=== PATIENT | female | born 1940 | race Caucasian/White ===

== ENCOUNTER → 2017-02-08 | Outpatient (CLI) | payer MEDICARE ==
--- NOTE | 2017-02-10 07:20 | MM ---
Reason for exam: screening (asymptomatic). Last mammogram was performed 1 year and 2 months ago. History: Patient is postmenopausal. Took estrogen for 9 years 1 month beginning at age 60. Took progesterone for 9 years 1 month beginning at age 60. Physical Findings: A clinical breast exam by your physician is recommended on an annual basis and results should be correlated with mammographic findings. MG 3D Screening Mammo W/Cad Bilateral CC and MLO view(s) were taken. Prior study comparison: November 26, 2015, bilateral MG screening mammo w CAD. October 22, 2013, bilateral MG screening mammo w CAD. August 16, 2011, bilateral digital screening mammo w/CAD. The breast tissue is heterogeneously dense. This may lower the sensitivity of mammography. No significant changes when compared with prior studies. ASSESSMENT: Negative, BI-RAD 1 RECOMMENDATION: Routine screening mammogram of both breasts in 1 year.
== END | disposition home or self-care (01) ==
LOC: RADMAMWWP 07:38
PROVIDERS: ATTEND Internal Medicine
DX: Z12.31 Encounter for screening mammogram for malignant neoplasm of breast (principal)
CPT/HCPCS: 77063; G0202

== ENCOUNTER → 2018-11-14 | Outpatient (CLI) | payer MEDICARE ==
--- NOTE | 2018-11-15 11:28 | MM ---
Reason for exam: screening (asymptomatic). Last mammogram was performed 1 year and 9 months ago. History: Patient is postmenopausal. Took estrogen for 9 years 1 month beginning at age 60. Took progesterone for 9 years 1 month beginning at age 60. Physical Findings: A clinical breast exam by your physician is recommended on an annual basis and results should be correlated with mammographic findings. MG 3D Screening Mammo W/Cad Bilateral CC and MLO view(s) were taken. XCCL view(s) were taken of the left breast. Prior study comparison: February 08, 2017, bilateral MG 3d screening mammo w/cad. November 26, 2015, bilateral MG screening mammo w CAD. The breast tissue is heterogeneously dense. This may lower the sensitivity of mammography. There are benign appearing round vascualr calcifications bilaterally. There is no discrete abnormality. ASSESSMENT: Benign, BI-RAD 2 RECOMMENDATION: Routine screening mammogram of both breasts in 1 year.
== END | disposition home or self-care (01) ==
LOC: RADMAMWWP 11:06
PROVIDERS: ATTEND Internal Medicine
DX: Z12.31 Encounter for screening mammogram for malignant neoplasm of breast (principal)
CPT/HCPCS: 77063; 77067

== ENCOUNTER → 2022-08-24 | Outpatient (CLI) | payer MEDICARE ==
--- NOTE | 2022-08-24 15:39 | NM ---
EXAMINATION TYPE: NM bone scan whole body DATE OF EXAM: 08/24/2022 COMPARISON: NONE HISTORY: Breast cancer Delayed whole-body scanning was performed following the injection of 23.3 mCi Tc 99m MDP. Images wer e acquired 4 hours post injection. FINDINGS: There is increased uptake within multiple vertebral levels. This appears to include the regions of T3 , pedicles of T5 and right T6 pedicles of T9 and left T10 pedicle increased uptake is within the pedi cles of L1-L2 and L3. There is a focus of radiotracer within the acetabulum and more diffusely in the right acetabulum. There are scattered areas of uptake within the ribs suspicious for metastatic dise ase. Additional scattered foci within the calvarium. Findings are suspicious for metastatic disease. Uptake within the first carpometacarpal regions bilaterally are more likely degenerative in nature. IMPRESSION: 1. Findings suspicious for multiple metastatic lesions through the axial skeleton including thoracic and lumbar spine. 2. Multiple scattered metastatic lesions within the bilateral ribs, the calvarium, compatible with me tastatic disease. 3. Scattered areas of uptake within the pelvis and around the acetabulum suggestive for metastatic di sease.
--- NOTE | 2022-08-24 22:02 | CT ---
EXAMINATION TYPE: CT ChestAbdPelvis w con DATE OF EXAM: 08/24/2022 INDICATION: FOLLOW UP BREAST CA COMPARISON: None CT DLP: 534 mGycm CONTRAST: Performed with Oral Contrast and with IV Contrast, patient injected with 100 mL of Isovue 300. TECHNIQUE: Axial images at 5 mm thick sections. Reconstructed images in the coronal plane. Delayed images through the kidneys. FINDINGS: CT CHEST: Portion of the thyroid visualized is normal. There are scattered bilateral axillary lymph nodes. The largest on the left measures 0.8 cm. Largest on the right measures 0.9 cm. No suspicious enlarged med iastinal or hilar lymph nodes are evident. No suspicious lung nodules or focal infiltrates are present. The ascending aorta diameter at the level of the main pulmonary artery is 3.3 cm. The main pulmonary artery diameter at the bifurcation is 2.4 cm. Small hiatal hernia is present. CT ABDOMEN: Liver: Normal Spleen: Normal Pancreas: Normal Adrenal glands: The adrenal glands are normal. Gallbladder: Surgically absent. Kidneys: No masses are evident. There is bilateral renal hydronephrosis. There is some prominent righ t ureter. This extends to the pelvic inlet. No obstructing etiology is identified. No cysts are prese nt. Delayed images were obtained through the kidneys. Aorta: Vascular calcification is within the aorta. Inferior vena cava: Normal. CT PELVIS: Loops of bowel within the abdomen and pelvis are normal. A few scattered diverticuli are present. There are loops of bowel which are incompletely distended or lack oral contrast limiting their evalua tion. Appendix: Normal as visualized. Urinary bladder: Normal. Genitourinary structures: Uterus is normal. Adnexa are unremarkable. Osseous structures: Sclerotic areas are present in L1 T10 posteriorly T7. Sclerosis may be in T1. Fin dings correlate with bone scan. IMPRESSIONS: 1. Diverticulosis without acute diverticulitis. 2. Bilateral mild hydronephrosis of uncertain etiology. 3. Prominent axillary lymphadenopathy bilaterally which are not enlarged by CT criteria. 4. Suspicious changes for metastasis to the axial spine. See nuclear medicine scan report same date.
== END | disposition home or self-care (01) ==
LOC: RADNMMAIN 08:58
PROVIDERS: ATTEND Internal Medicine Hematology & Oncology
DX: Z03.89 Encounter for observation for other suspected diseases and conditions ruled out (principal); C79.51 Secondary malignant neoplasm of bone; C50.112 Malignant neoplasm of central portion of left female breast; N13.30 Unspecified hydronephrosis; K57.90 Diverticulosis of intestine, part unspecified, without perforation or abscess without bleeding; R59.0 Localized enlarged lymph nodes
CPT/HCPCS: 82565; 84520; 71260; 74177; 36415; 78306; A9503; Q9967

== ENCOUNTER 2022-09-22 11:32 | Emergency (ER) | payer MEDICARE ==
[2022-09-22 11:59] VITALS: PULSE 76; RESP 16; TEMP 97.8
[2022-09-22 13:46] LABS: Anisocytosis Slight; Basophils # (A) 0.1 k/uL (0-0.2); Basophils % (A) 3 %; Eosinophils # (A) 0.1 k/uL (0-0.7); Eosinophils % (A) 4 %; HCT 35.6 % (34.0-46.0); Lymphocytes # (A) 0.8 k/uL (1.0-4.8); Lymphocytes % (A) 31 %; MCH 30.8 pg (25.0-35.0); MCHC 33.8 g/dL (31.0-37.0); MCV 91.2 fL (80.0-100.0); Mean Platelet Volume 7.2; Monocytes # (A) 0.1 k/uL (0-1.0); Monocytes % (A) 4 %; Neutrophils # (A) 1.4 k/uL (1.3-7.7); Neutrophils % (A) 54 %; Platelet Count 445 k/uL (150-450); RDW 16.8 % (11.5-15.5); WBC 2.5 k/uL (3.8-10.6)
--- NOTE | 2022-09-22 14:00 | ED ---
General Adult HPI - General Chief complaint: Headache Stated complaint: head pain, vision issues Time Seen by Provider: 09/22/22 12:03 Source: patient, family Mode of arrival: ambulatory Limitations: physical limitation - History of Present Illness Initial comments: Dictation was produced using [employer] dictation software. please excuse any grammatical, word or spelling errors. Chief Complaint: 81-year-old female sent in to the emergency department by oncologist for vision changes and headache History of Present Illness: Exacerbation is an 81-year-old female. History of present illness obtained from daughter at the bedside and exacerbation. Patient was instructed by . had come to the emergency department to be evaluated. O jevon the last 2 weeks patient has been having intermittent episodes of left occipital headaches with left vision changes. She has history of cataract surgery in the left eye. She was recently in [place] were tentative diagnosis is made that patient has temporal arteritis. She did not end up getting temporal artery biopsy. She did receive steroids at this time. Patient denies any symptoms at the bedside. For the last 2 weeks she's been having on and off sputtering symptoms. She saw an bicycle messenger recently and was told that patient had normal ocular exam. Patient has history of breast cancer with metastatic spread. The ROS documented in this emergency department record has been reviewed and confirmed by me. Those systems with pertinent positive or negative responses have been documented in the HPI. All other systems are other negative and/or noncontributory. - Related Data Home Medications Medication Instructions Recorded Confirmed Letrozole 2.5 mg PO PC-LUNCH 09/22/22 09/22/22 Levothyroxine Sodium [Synthroid] 50 mcg PO SEGUNDO 09/22/22 09/22/22 Levothyroxine Sodium [Synthroid] 100 mcg PO MOTUWETHFRSA 09/22/22 09/22/22 Palbociclib [Ibrance] 125 mg PO DIRECTED 09/22/22 09/22/22 Previous Rx's Medication Instructions Recorded predniSONE [Deltasone] 60 mg PO DAILY 14 Days #42 tab 09/22/22 Allergies Allergy/AdvReac Type Severity Reaction Status Date / Time No Known Allergies Allergy Verified 09/22/22 15:46 Review of Systems ROS Statement: Those systems with pertinent positive or pertinent negative responses have been documented in the HPI. ROS Other: All systems not noted in ROS Statement are negative. Past Medical History Past Medical History: Cancer, Thyroid Disorder Additional Past Medical History / Comment(s): hard of hearing, bilat hearing aid, lt breast History of Any Multi-Drug Resistant Organisms: None Reported Past Surgical History: Cholecystectomy Past Anesthesia/Blood Transfusion Reactions: No Reported Reaction Past Psychological History: No Psychological Hx Reported Smoking Status: Former smoker Past Alcohol Use History: None Reported, Rare Past Drug Use History: None Reported General Exam - General Exam Comments Initial Comments: PHYSICAL EXAM: General Impression: Alert and oriented x3, not in acute distress HEENT: Normocephalic atraumatic, extra-ocular movements intact, pupils equal and reactive to light bilaterally, mucous membranes moist. Cardiovascular: Heart regular rate and rhythm Chest: Able to complete full sentences, no retractions, no tachypnea Abdomen: abdomen soft, non-tender, non-distended, no organomegaly Musculoskeletal: Pulses present and equal in all extremities, no peripheral edema Motor: no focal deficits noted Neurological: CN II-XII grossly intact, no focal motor or sensory deficits noted Skin: Intact with no visualized rashes Psych: Normal affect and mood Limitations: physical limitation Course Vital Signs 09/22/22 09/22/22 11:55 15:41 Temperature 97.8 F Pulse Rate 76 76 Respiratory 16 16 Rate Blood Pressure 193/76 166/70 O2 Sat by Pulse 98 166 H Oximetry - Reevaluation(s) Reevaluation #1: 09/22/22 16:38 Patient absolutely refusing admission. Case discussed with Dr. Merida request the patient be given prescription for 60 mg prednisone daily and patient be provided with referral to vascular surgeon for outpatient temporal artery biop sy. Patient is agreeable. She is told to follow-up with her primary doctor for outpatient management. Patient understands that her condition can acutely worsened resulting in permanent vision loss EKG Findings - EKG Comments: EKG Findings:: My EKG interpretation: Ventricular rate 60, sinus rhythm,. 133, QRS 82, QTC 4:15. No MA prolongation, no QTC prolongation, no ST or T-wave changes noted. No old EKG for comparison Overall, this EKG is unremarkable Medical Decision Making - Medical Decision Making Was pt. sent in by a medical professional or institution (, PA, PLANTING SUPERVISOR, urgent care, hospital, or half-way...) When possible be specific @ -Sent in by oncologist Did you speak to anyone other than the patient for history (EMS, parent, family, police, friend...)? What history was obtained from this source @ -Daughter at the bedside provides majority of history of present illness. See above for further detail Did you review nursing and triage notes (agree or disagree)? Why? @ -I reviewed and agree with nursing and triage notes Were old charts reviewed (outside hosp., previous admission, EMS record, old EKG, old radiological studies, urgent care reports/EKG's, half-way records)? Report findings @ -No old charts were reviewed Differential Diagnosis (chest pain, altered mental status, abdominal pain women, abdominal pain men, vaginal bleeding, musculoskeletal, weakness, fever, dyspnea, syncope, headache, dizziness, GI bleed, back pain, seizure, CVA, palpatations, mental health)? @ -Differential Headache: Migraine, tension, cluster, carbon monoxide, central venous thrombosis, pension karma temporal arteritis, acute closure glaucoma, intercranial hemorrhage, mastoiditis, sinusitis, head injury, this is not meant to be an all-inclusive list. EKG interpreted by me (3pts min.). @ -See above X-rays interpreted by me (1pt min.). @ -None done CT interpreted by me (1pt min.). @ -Nonacute U/S interpreted by me (1pt. min.). @ -None done What testing was considered but not performed or refused? (CT, X-rays, U/S, labs)? Why? @ -None What meds were considered but not given or refused? Why? @ -None Did you discuss the management of the patient with other professionals (professionals i.e. , PA, PLANTING SUPERVISOR, lab, RT, psych nurse, social research assistant, car dumper operator helper, teacher, railroad police officer, catalytic case operator)? Give summary @ -No Was smoking cessation discussed for >3mins.? @ -No Was critical care preformed (if so, how long)? @ -No Were there social determinants of health that impacted care today? How? (Homelessness, low income, unemployed, alcoholism, drug addiction, transportation, low edu. Level, literacy, decrease access to med. care, nursing home, rehab)? @ -No Was there de-escalation of care discussed even if they declined (Discuss DNR or withdrawal of care, Hospice)? DNR status @ -No What co-morbidities impacted this encounter? (DM, HTN, Smoking, COPD, CAD, Cancer, CVA, ARF, Chemo, Hep., AIDS, mental health diagnosis, sleep apnea, morbid obesity)? @ -None Was patient admitted / discharged? Hospital course, mention meds given and route, prescriptions, significant lab abnormalities, going to OR and other per tinent info. @ -81-year-old female sent in by oncologist for headache and vision changes. She is asymptomatic at bedside. Laboratory evaluation shows leukopenia 2.5. ESR was elevated at 62. CRP is within acceptable limits. Patient reevaluated bedside on be within stable medical condition. Clinical presentation is suspicious for temporal arteritis. Patient absolutely refusing admission. Case discussed with neurology for outpatient plan. Given referral to vascular surg michael for recommended temporal artery biopsy. Undiagnosed new problem with uncertain prognosis? @ -No Drug Therapy requiring intensive monitoring for toxicity (Heparin, Nitro, Insulin, Cardizem)? @ -No Were any procedures done? @ -No Diagnosis/symptom? Acute, or Chronic, or Acute on Chronic? Uncomplicated (without systemic symptoms) or Complicated (systemic symptoms)? @ -1. acute headache with vision changes Side effects of treatment? @ -No Exacerbation, Progression, or Severe Exacerbation? @ -No Poses a threat to life or bodily function? How? (Chest pain, [place], [place], pneumonia, PE, COPD, DKA, ARF, appy, cholecystitis, CVA, Diverticulitis, Homicidal, Suicidal, threat to staff... and all critical care pts) @ -yes - Lab Data Result diagrams: 09/22/22 13:37 09/22/22 13:37 Lab Results 09/22/22 09/22/22 Range/Units 13:37 13:37 WBC 2.5 L (3.8-10.6) k/uL RBC 3.90 (3.80-5.40) m/uL Hgb 12.0 (11.4-16.0) gm/dL Hct 35.6 (34.0-46.0) % MCV 91.2 (80.0-100.0) fL MCH 30.8 (25.0-35.0) pg MCHC 33.8 (31.0-37.0) g/dL RDW 16.8 H (11.5-15.5) % Plt Count 445 (150-450) k/uL MPV 7.2 Neutrophils % 54 % Lymphocytes % 31 % Monocytes % 4 % Eosinophils % 4 % Basophils % 3 % Neutrophils # 1.4 (1.3-7.7) k/uL Lymphocytes # 0.8 L (1.0-4.8) k/uL Monocytes # 0.1 (0-1.0) k/uL Eosinophils # 0.1 (0-0.7) k/uL Basophils # 0.1 (0-0.2) k/uL Anisocytosis Slight ESR 62 H (0-20) mm/hr Sodium 141 (137-145) mmol/L Potassium 4.9 (3.5-5.1) mmol/L Chloride 106 (98-107) mmol/L Carbon Dioxide 25 (22-30) mmol/L Anion Gap 10 mmol/L BUN 19 H (7-17) mg/dL Creatinine 0.61 (0.52-1.04) mg/dL Est GFR (CKD-EPI)AfAm >90 (>60 ml/min/1.73 sqM) Est GFR (CKD-EPI)NonAf 85 (>60 ml/min/1.73 sqM) Glucose 104 H (74-99) mg/dL Calcium 8.6 (8.4-10.2) mg/dL Total Bilirubin 0.4 (0.2-1.3) mg/dL AST 28 (14-36) U/L ALT 17 (4-34) U/L Alkaline Phosphatase 94 (38-126) U/L C-Reactive Protein 1.5 H (<1.0) mg/dL Total Protein 7.0 (6.3-8.2) g/dL Albumin 3.9 (3.5-5.0) g/dL Disposition Clinical Impression: Headache Disposition: HOME SELF-CARE Condition: Fair Instructions (If sedation given, give patient instructions): Temporal Arteritis (ED) Prescriptions: predniSONE [Deltasone] 60 mg PO DAILY 14 Days #42 tab Is patient prescribed a controlled substance at d/c from ED?: No Referrals: Kat Castillo MD [Primary Care Provider] - 1-2 days Onelia Hargrove DO [STAFF PHYSICIAN] - 1-2 days Time of Disposition: 16:41
[2022-09-22 14:06] LABS: ALT 17 U/L (4-34); AST 28 U/L (14-36); African American GFR (CKD) >90 (>60 ml/min/1.73 sqM); Albumin 3.9 g/dL (3.5-5.0); Alkaline Phosphatase 94 U/L (38-126); Anion Gap 10 mmol/L; Blood Urea Nitrogen 19 mg/dL (7-17); C Reactive Protein 1.5 mg/dL (<1.0); Calcium 8.6 mg/dL (8.4-10.2); Carbon Dioxide 25 mmol/L (22-30); Chloride 106 mmol/L (98-107); Glucose 104 mg/dL (74-99); Non-African American GFR(CKD) 85 (>60 ml/min/1.73 sqM); Potassium 4.9 mmol/L (3.5-5.1); Sodium 141 mmol/L (137-145); Total Bilirubin 0.4 mg/dL (0.2-1.3)
--- NOTE | 2022-09-22 14:08 | CT ---
EXAMINATION TYPE: CT brain wo con CT DLP: 1100 mGycm, Automated exposure control for dose reduction was used. DATE OF EXAM: 09/22/2022 2:00 PM COMPARISON: None. CLINICAL INDICATION:Female, 81 years old with history of headache, Pain in back of head-left side TECHNIQUE: Brain: Multiple axial CT images of the brain were obtained without IV contrast. Coronal and sagittal reformats reviewed. FINDINGS: Brain: Extra-axial spaces: No abnormal extra-axial fluid collections. Ventricular system: Within normal limits Cerebral parenchyma: Cerebral atrophy. No acute intraparenchymal hemorrhage or mass effect. The santos -white junction is well differentiated. Scattered hypoattenuating areas are seen within the white mat ter. Cerebellum: Unremarkable. Mass effect: No evidence of midline shift. Intracranial vasculature: Atherosclerotic calcifications of the intracranial vessels. Soft tissues: Normal. Calvarium/osseous structures: No depressed skull fracture. Paranasal sinuses and mastoid air cells: Clear, hypoplasia of the right frontal sinus. Visualized orbits: Bilateral aphakia IMPRESSION: 1. No acute intracranial process. 2. Nonspecific white matter changes, likely secondary to chronic small vessel ischemic disease.
[2022-09-22 15:28] LABS: Erythrocyte Sedimentation Rate 62 mm/hr (0-20)
[2022-09-22 15:41] VITALS: BP 166/70
[2022-09-22] MEDS ORDERED: LIDOCAINE 5% PATCH TOPICAL STA (16:07)
--- NOTE | 2022-09-22 17:21 | P.PN ---
Progress Note - Text Progress Note Date: 09/22/22 Dr Douglas spoke to me earlier about this patient, who has elevated ESR of 62, and recent onset of occipital headache, suspected temporal arteritis for the dose of prednisone. Patient did not want to stay in the hospital. I did inform him of standard dose of prednisone 60 mg daily for temporal arteritis. Patient was sent home from ER. I wanted to see the patient in the ER, but apparently she was already discharged. I called patient's daughter on the phone, and spoke to her. She tells me that patient has been diagnosed with metastatic breast cancer, currently on chemotherapy. About 4 years ago while she was in [place], she had suspected temporal arteritis. She was started on prednisone. When she moved to [place], patient saw a neurologist as well as mine laborer locally, and both of those specialists did not believe that it was temporal arteritis. She was referred to a female vascular surgeon, (?perhaps Dr. Hargrove), who did not believe that she has temporal arteritis either. This procedure was never performed. Patient was not on any steroids all these years and was otherwise fine all these years. She had undergone cataract surgery a year ago and since then she has been having intermittent blurred vision off and on. She was seen by Dr. Hwang about a week ago, and her eyes were fine. Based upon above history, I do not believe that patient has temporal arteritis. I suggested patient's daughter not to give her high-dose steroids. Instructed her to return to ER for further evaluation, as she may need an MRI of the brain and cervical spine, perhaps also neuro vascular imaging and further testing for evaluation of new onset headache. However patient's daughter wanted patient to be seen by the primary physician and decide. They also have an appointment with the oncologist in a week. Patient's daughter understands the risks of not bringing her to the hospital, and there could be something serious undergoing at this time. She was instructed to bring her mother back to the hospital if any concerns.
== END 2022-09-22 16:51 | disposition home or self-care (01) ==
LOC: EC 11:32
DX: R51.9 Headache, unspecified (principal); E07.9 Disorder of thyroid, unspecified; Z79.890 Hormone replacement therapy; Z87.891 Personal history of nicotine dependence; Z90.49 Acquired absence of other specified parts of digestive tract
CPT/HCPCS: 36415; 70450; 80053; 85025; 85652; 86140; 93005; 99284

== ENCOUNTER 2022-12-23 17:21 | Inpatient (IN) | payer MEDICARE ==
[2022-12-23] MEDS ORDERED: SODIUM CHLORIDE 0.9% 1,000 ML IV STA (17:53)
[2022-12-23] MEDS ORDERED: SODIUM CHLORIDE 0.9% 500 ML 500 ML IV STA (17:53)
[2022-12-23 18:28] LABS: HCT 35.5 % (34.0-46.0); HGB 12.5 gm/dL (11.4-16.0); MCH 36.2 pg (25.0-35.0); MCHC 35.1 g/dL (31.0-37.0); Macrocytosis Slight; Mean Platelet Volume 7.8; Platelet Count 231 k/uL (150-450); RBC 3.45 m/uL (3.80-5.40)
--- NOTE | 2022-12-23 18:38 | CT ---
EXAMINATION TYPE: CT brain wo con DATE OF EXAM: 12/23/2022 COMPARISON: 09/22/2022 HISTORY: Confusion, LT side facial droop. CT DLP: 1118.[address] of the brain was performed. The ventricles, basal cisterns and sulci overlying the cerebral convexities demonstrate mild enlargem ent. New areas of acute edema involving the right caudate nucleus and putamen compatible with acute i schemic insult. No evidence for cortical insult at this time. There is no evidence for intracranial hemorrhage. There is decreased attenuation about the periventricular white matter and deep white matter of both c erebral hemispheres, compatible with chronic small vessel ischemia. Differential diagnosis does inclu de demyelination. No mass effects are seen.No midline shift. Osseous calvarium is intact. If symptoms persist consider MRI. IMPRESSION: 1. Acute areas of ischemic insult involving the right caudate nucleus and putamen. No evidence for he morrhagic transformation. No midline shift.
--- NOTE | 2022-12-23 18:43 | ED ---
Neuro HPI - General Chief Complaint: Neuro Symptoms/Deficit Stated Complaint: confusion, mouth drooping per dtr Time Seen by Provider: 12/23/22 17:52 Source: patient, RN notes reviewed, old records reviewed, Caregiver Mode of arrival: ambulatory Limitations: no limitations - History of Present Illness Is the patient presenting with stroke symptoms?: Yes -: hour(s) (Family did not notice symptoms to around noon), unknown (Likely unknown) Initial Comments: This is an 82-year-old female DF for evaluation not acting appropriately per family. Family is at bedside providing history, family noticed patient to be slurring speech earlier this afternoon and later in the day when I saw the patient they did notice facial droop. Patient presents with no complaints herself. She has no headache chest pain shortness of breath abdominal pain able to ambulate without difficulty no history of prior CVA patient is also having periods of confusion throughout the day. Patient does have history of breast cancer no prior history of CVA. Unsure of exact onset of symptoms although patient around 10 and was seen by the daughter on face time and thought to be acting appropriate. Patient herself remained without complaint, patient's daughter again talked the patient around 1 PM and noticed slurred speech, saw the patient in personal 3 PM notice facial droop and patient presents to the ER today Location: speech, left face, dysarthria Place: home Severity: mild Quality: weak Improves With: none Worsens With: none Context: other (Unknown) Associated Symptoms: confusion, weakness Treatments Prior to Arrival: none - Related Data Home Medications: Home Medications Medication Instructions Recorded Confirmed Letrozole 2.5 mg PO DAILY 09/22/22 12/23/22 Levothyroxine Sodium [Synthroid] 100 mcg PO DAILY 09/22/22 12/23/22 Palbociclib [Ibrance] 125 mg PO DIRECTED 09/22/22 12/23/22 ALPRAZolam [Xanax] 0.25 mg PO DAILY PRN 12/23/22 12/23/22 Ondansetron [Zofran] 4 mg PO TID PRN 12/23/22 12/23/22 Allergies/Adverse Reactions: Allergies Allergy/AdvReac Type Severity Reaction Status Date / Time No Known Allergies Allergy Verified 12/23/22 20:02 Review of Systems ROS Statement: Those systems with pertinent positive or pertinent negative responses have been documented in the HPI. ROS Other: All systems not noted in ROS Statement are negative. General Exam - General Exam Comments Initial Comments: NIH of 3 Limitations: no limitations General appearance: alert, in no apparent distress Head exam: Present: atraumatic, normocephalic, normal inspection Eye exam: Present: normal appearance, PERRL, EOMI. Absent: scleral icterus, conjunctival injection, periorbital swelling ENT exam: Present: normal exam, mucous membranes moist Neck exam: Present: normal inspection. Absent: tenderness, meningismus, lymphadenopathy Respiratory exam: Present: normal lung sounds bilaterally. Absent: respiratory distress, wheezes, rales, rhonchi, stridor Cardiovascular Exam: Present: regular rate, normal rhythm, normal heart sounds. Absent: systolic murmur, diastolic murmur, rubs, gallop, clicks GI/Abdominal exam: Present: soft, normal bowel sounds. Absent: distended, tenderness, guarding, rebound, rigid Extremities exam: Present: normal inspection, full ROM, normal capillary refill. Absent: tenderness, pedal edema, joint swelling, calf tenderness Back exam: Present: normal inspection Neurological exam: Present: alert, oriented X3, CN II-XII intact Psychiatric exam: Present: normal affect, normal mood Skin exam: Present: warm, dry, intact, normal color. Absent: rash Stroke MDM - Lab Data Result diagrams: 12/26/22 14:02 12/26/22 14:02 Lab Results 12/23/22 12/23/22 12/23/22 Range/Units 17:53 17:53 17:53 WBC 3.0 L (3.8-10.6) k/uL RBC 3.45 L (3.80-5.40) m/uL Hgb 12.5 (11.4-16.0) gm/dL Hct 35.5 (34.0-46.0) % MCV 103.0 H (80.0-100.0) fL MCH 36.2 H (25.0-35.0) pg MCHC 35.1 (31.0-37.0) g/dL RDW 15.0 (11.5-15.5) % Plt Count 231 (150-450) k/uL MPV 7.8 Neutrophils % Not Reportable Neutrophils % (Manual) 42 % Lymphocytes % Not Reportable Lymphocytes % (Manual) 51 % Monocytes % Not Reportable Monocytes % (Manual) 6 % Eosinophils % Not Reportable Eosinophils % (Manual) 1 % Basophils % Not Reportable Neutrophils # Not Reportable Neutrophils # (Manual) 1.26 L (1.3-7.7) k/uL Lymphocytes # Not Reportable Lymphocytes # (Manual) 1.53 (1.0-4.8) k/uL Monocytes # Not Reportable Monocytes # (Manual) 0.18 (0-1.0) k/uL Eosinophils # Not Reportable Eosinophils # (Manual) 0.03 (0-0.7) k/uL Basophils # Not Reportable Nucleated RBCs 0 (0-0) /100 WBC Manual Slide Review Performed Macrocytosis Slight PT 9.9 (9.0-12.0) sec INR 0.9 (<1.2) APTT 23.0 (22.0-30.0) sec Sodium 139 (137-145) mmol/L Potassium 4.5 (3.5-5.1) mmol/L Chloride 105 (98-107) mmol/L Carbon Dioxide 27 (22-30) mmol/L Anion Gap 7 mmol/L BUN 21 H (7-17) mg/dL Creatinine 0.80 (0.52-1.04) mg/dL Est GFR (CKD-EPI)AfAm 80 (>60 ml/min/1.73 sqM) Est GFR (CKD-EPI)NonAf 69 (>60 ml/min/1.73 sqM) Glucose 99 (74-99) mg/dL Plasma Lactic Acid Jhonny (0.7-2.0) mmol/L Calcium 9.5 (8.4-10.2) mg/dL Phosphorus 4.9 H (2.5-4.5) mg/dL Magnesium 2.1 (1.6-2.3) mg/dL Total Bilirubin 0.5 (0.2-1.3) mg/dL AST 29 (14-36) U/L ALT 19 (4-34) U/L Alkaline Phosphatase 79 (38-126) U/L Troponin I (0.000-0.034) ng/mL Total Protein 7.4 (6.3-8.2) g/dL Albumin 4.1 (3.5-5.0) g/dL Triglycerides (0.00-149.00) mg/dL Cholesterol (0.00-200.00) mg/dL LDL Cholesterol, Calc (0.0-131.0) mg/dL VLDL Cholesterol, Calc (5.00-40.00) mg/dL HDL Cholesterol (40.00-60.00) mg/dL Cholesterol/HDL Ratio Ratio Urine Color Urine Appearance (Clear) Urine pH (5.0-8.0) Ur Specific [place] (1.001-1.035) Urine Protein (Negative) Urine Glucose (UA) (Negative) Urine Ketones (Negative) Urine Blood (Negative) Urine Nitrite (Negative) Urine Bilirubin (Negative) Urine Urobilinogen (<2.0) mg/dL Ur Leukocyte Esterase (Negative) 12/23/22 12/23/22 12/23/22 Range/Units 17:53 17:53 17:53 WBC (3.8-10.6) k/uL RBC (3.80-5.40) m/uL Hgb (11.4-16.0) gm/dL Hct (34.0-46.0) % MCV (80.0-100.0) fL MCH (25.0-35.0) pg MCHC (31.0-37.0) g/dL RDW (11.5-15.5) % Plt Count (150-450) k/uL MPV Neutrophils % Neutrophils % (Manual) % Lymphocytes % Lymphocytes % (Manual) % Monocytes % Monocytes % (Manual) % Eosinophils % Eosinophils % (Manual) % Basophils % Neutrophils # Neutrophils # (Manual) (1.3-7.7) k/uL Lymphocytes # Lymphocytes # (Manual) (1.0-4.8) k/uL Monocytes # Monocytes # (Manual) (0-1.0) k/uL Eosinophils # Eosinophils # (Manual) (0-0.7) k/uL Basophils # Nucleated RBCs (0-0) /100 WBC Manual Slide Review Macrocytosis PT (9.0-12.0) sec INR (<1.2) APTT (22.0-30.0) sec Sodium (137-145) mmol/L Potassium (3.5-5.1) mmol/L Chloride (98-107) mmol/L Carbon Dioxide (22-30) mmol/L Anion Gap mmol/L BUN (7-17) mg/dL Creatinine (0.52-1.04) mg/dL Est GFR (CKD-EPI)AfAm (>60 ml/min/1.73 sqM) Est GFR (CKD-EPI)NonAf (>60 ml/min/1.73 sqM) Glucose (74-99) mg/dL Plasma Lactic Acid Jhonny 1.4 (0.7-2.0) mmol/L Calcium (8.4-10.2) mg/dL Phosphorus (2.5-4.5) mg/dL Magnesium (1.6-2.3) mg/dL Total Bilirubin (0.2-1.3) mg/dL AST (14-36) U/L ALT (4-34) U/L Alkaline Phosphatase (38-126) U/L Troponin I <0.012 (0.000-0.034) ng/mL Total Protein (6.3-8.2) g/dL Albumin (3.5-5.0) g/dL Triglycerides 185.00 H (0.00-149.00) mg/dL Cholesterol 192.00 (0.00-200.00) mg/dL LDL Cholesterol, Calc 116.6 (0.0-131.0) mg/dL VLDL Cholesterol, Calc 37.00 (5.00-40.00) mg/dL HDL Cholesterol 38.40 L (40.00-60.00) mg/dL Cholesterol/HDL Ratio 5.00 Ratio Urine Color Urine Appearance (Clear) Urine pH (5.0-8.0) Ur Specific [place] (1.001-1.035) Urine Protein (Negative) Urine Glucose (UA) (Negative) Urine Ketones (Negative) Urine Blood (Negative) Urine Nitrite (Negative) Urine Bilirubin (Negative) Urine Urobilinogen (<2.0) mg/dL Ur Leukocyte Esterase (Negative) 12/23/22 Range/Units 18:54 WBC (3.8-10.6) k/uL RBC (3.80-5.40) m/uL Hgb (11.4-16.0) gm/dL Hct (34.0-46.0) % MCV (80.0-100.0) fL MCH (25.0-35.0) pg MCHC (31.0-37.0) g/dL RDW (11.5-15.5) % Plt Count (150-450) k/uL MPV Neutrophils % Neutrophils % (Manual) % Lymphocytes % Lymphocytes % (Manual) % Monocytes % Monocytes % (Manual) % Eosinophils % Eosinophils % (Manual) % Basophils % Neutrophils # Neutrophils # (Manual) (1.3-7.7) k/uL Lymphocytes # Lymphocytes # (Manual) (1.0-4.8) k/uL Monocytes # Monocytes # (Manual) (0-1.0) k/uL Eosinophils # Eosinophils # (Manual) (0-0.7) k/uL Basophils # Nucleated RBCs (0-0) /100 WBC Manual Slide Review Macrocytosis PT (9.0-12.0) sec INR (<1.2) APTT (22.0-30.0) sec Sodium (137-145) mmol/L Potassium (3.5-5.1) mmol/L Chloride (98-107) mmol/L Carbon Dioxide (22-30) mmol/L Anion Gap mmol/L BUN (7-17) mg/dL Creatinine (0.52-1.04) mg/dL Est GFR (CKD-EPI)AfAm (>60 ml/min/1.73 sqM) Est GFR (CKD-EPI)NonAf (>60 ml/min/1.73 sqM) Glucose (74-99) mg/dL Plasma Lactic Acid Jhonny (0.7-2.0) mmol/L Calcium (8.4-10.2) mg/dL Phosphorus (2.5-4.5) mg/dL Magnesium (1.6-2.3) mg/dL Total Bilirubin (0.2-1.3) mg/dL AST (14-36) U/L ALT (4-34) U/L Alkaline Phosphatase (38-126) U/L Troponin I (0.000-0.034) ng/mL Total Protein (6.3-8.2) g/dL Albumin (3.5-5.0) g/dL Triglycerides (0.00-149.00) mg/dL Cholesterol (0.00-200.00) mg/dL LDL Cholesterol, Calc (0.0-131.0) mg/dL VLDL Cholesterol, Calc (5.00-40.00) mg/dL HDL Cholesterol (40.00-60.00) mg/dL Cholesterol/HDL Ratio Ratio Urine Color Colorless Urine Appearance Clear (Clear) Urine pH 6.5 (5.0-8.0) Ur Specific [place] 1.003 (1.001-1.035) Urine Protein Negative (Negative) Urine Glucose (UA) Negative (Negative) Urine Ketones Negative (Negative) Urine Blood Negative (Negative) Urine Nitrite Negative (Negative) Urine Bilirubin Negative (Negative) Urine Urobilinogen <2.0 (<2.0) mg/dL Ur Leukocyte Esterase Negative (Negative) - NIH Stroke Scale 1a. Level of Consciousness: (0) alert 1b. LOC Questions: (0) answers correctly 1c. LOC Commands: (0) performs tasks correctly 2. Best Gaze: (0) normal 3. Visual: (0) no visual loss 4. Facial Palsy: (2) partial paralysis 5a. Motor Arm Left: (0) no drift 5b. Motor Arm Right: (0) no drift 6a. Motor Leg Left: (0) no drift 6b. Motor Leg Right: (0) no drift 7. Limb Ataxia: (0) absent 8. Sensory: (0) normal 9. Best Language: (1) mild/moderate aphasia 10. Dysarthria: (0) normal 11. Extinction/Inattention: (0) no abnormality - Thrombolytic Inclusion/Exclusion Thrombolytic Exclusion Criteria: Symptom Onset > 4.5 Hours - Medical Decision Making 82 female to the ER with acute CVA, patient presents today for evaluation of slurred speech, left-sided facial droop. Patient is outside the window for TPA secondary to unknown onset of symptoms likely wake up stroke, patient is found to be confused by find him Route phone call and then noted facial droop impression both early this afternoon. Computed tomography scan is positive for CVA also and further proving early onset of symptoms much prior to arrival - Radiology Data Radiology results: report reviewed (CT brain CT [place] head neck is positive for CVA), image reviewed - EKG Data -: EKG Interpreted by Me Past Medical History Past Medical History: Cancer, Thyroid Disorder Additional Past Medical History / Comment(s): hard of hearing, bilat hearing aid, lt breast History of Any Multi-Drug Resistant Organisms: None Reported Past Surgical History: Cholecystectomy Past Anesthesia/Blood Transfusion Reactions: No Reported Reaction Past Psychological History: No Psychological Hx Reported Smoking Status: Former smoker Past Alcohol Use History: None Reported, Rare Past Drug Use History: None Reported - Past Family History Father Family Medical History: Myocardial Infarction (MT) Mother Family Medical History: CVA/TIA Course Vital Signs 12/23/22 12/23/22 12/23/22 17:41 17:53 18:00 Temperature 98.1 F Pulse Rate 63 72 74 Respiratory 20 16 17 Rate Blood Pressure 188/88 199/78 199/78 O2 Sat by Pulse 98 98 97 Oximetry 12/23/22 12/23/22 12/23/22 18:40 19:30 20:30 Temperature Pulse Rate 66 66 72 Respiratory 19 15 Rate Blood Pressure 171/72 184/70 168/71 O2 Sat by Pulse 97 98 99 Oximetry 12/23/22 12/23/22 12/23/22 21:00 21:30 22:00 Temperature Pulse Rate 68 63 67 Respiratory 16 16 18 Rate Blood Pressure 180/90 176/68 156/70 O2 Sat by Pulse 97 99 97 Oximetry 12/24/22 12/24/22 12/24/22 00:50 01:00 02:00 Temperature Pulse Rate 66 69 Respiratory 19 19 Rate Blood Pressure 139/76 139/76 148/66 O2 Sat by Pulse 94 L 95 96 Oximetry 12/24/22 12/24/22 12/24/22 03:00 04:00 05:00 Temperature Pulse Rate 61 61 53 L Respiratory 13 16 17 Rate Blood Pressure 151/50 120/99 147/58 O2 Sat by Pulse 97 96 94 L Oximetry 12/24/22 12/24/22 12/24/22 06:00 06:10 06:20 Temperature Pulse Rate 52 L 49 L 50 L Respiratory 18 17 17 Rate Blood Pressure 119/50 121/58 121/58 O2 Sat by Pulse 96 98 97 Oximetry 12/24/22 12/24/22 12/24/22 06:30 06:40 06:50 Temperature Pulse Rate 53 L 51 L 54 L Respiratory 17 16 18 Rate Blood Pressure 121/58 121/58 121/58 O2 Sat by Pulse 97 96 95 Oximetry 12/24/22 12/24/22 12/24/22 07:00 07:25 09:10 Temperature 97.9 F 97.8 F Pulse Rate 54 L 71 64 Respiratory 18 16 17 Rate Blood Pressure 121/58 115/53 173/73 O2 Sat by Pulse 95 96 100 Oximetry 12/24/22 12/24/22 12/24/22 11:45 15:39 18:10 Temperature 97.6 F 97.8 F 97.6 F Pulse Rate 64 66 65 Respiratory 16 16 16 Rate Blood Pressure 194/71 148/49 158/60 O2 Sat by Pulse 99 98 97 Oximetry - Reevaluation(s) Reevaluation #1: 12/23/22 18:30 Medical records reviewed Code still paged on patient presentation and evaluation Patient was not cold alteplase due to timing patient's daughter again talked the patient around 1 PM and noticed slurred speech, saw the patient in personal 3 PM notice facial droop and patient presents to the ER today she presents just over 4-1/2 hours and outside the window of TPA Reevaluation #2: 12/23/22 18:31 Patient has no improvement in symptoms here in the ER Reevaluation #3: 12/23/22 18:31 Family informed of results, questions answered Reevaluation #4: Was pt. sent in by a medical professional or institution (, PA, CAD DRAFTER, urgent care, hospital, or [facility]...) When possible be specific @ -no Did you speak to anyone other than the patient for history (EMS, parent, family, police, friend...)? What history was obtained from this source @ -no Did you review nursing and triage notes (agree or disagree)? Why? @ -agree Are old charts reviewed (outside hosp., previous admission, EMS record, old EKG, old radiological studies, urgent care reports/EKG's, [facility] records)? Rep ort findings @ -yes Differential Diagnosis (chest pain, altered mental status, abdominal pain women, abdominal pain men, vaginal bleeding, weakness, fever, dyspnea, syncope, headache, dizziness, GI bleed, back pain, seizure, CVA, palpatations, mental health, musculoskeletal)? @ -prior EKG interpreted by me (3pts min.). @ -yes X-rays interpreted by me (1pt min.). @ -no CT interpreted by me (1pt min.). @ -yes U/S interpreted by me (1pt. min.). @ -no What testing was considered but not performed or refused? (CT, X-rays, U/S, labs)? Why? @ -none What meds were considered but not given or refused? Why? @ -none Did you discuss the management of the patient with other professionals (jonathan benitez i.e. , PA, CAD DRAFTER, lab, RT, psych nurse, social media sr strategy manager, farm boss, teacher, global chief creative officer, case filler)? Give summary @ -no Was smoking cessation discussed for >3mins.? @ -no Was critical care preformed (if so, how long)? @ -yes31 Were there social determinants of health that impacted care today? How? (Homelessness, low income, unemployed, alcoholism, drug addiction, transportation, low edu. Level, literacy, decrease access to med. care, care home, rehab)? @ -none Was there de-escalation of care discussed even if they declined (Discuss DNR or withdrawal of care, Hospice)? DNR status @ -no What co-morbidities impacted this encounter? (DM, HTN, Smoking, COPD, CAD, Cancer, CVA, ARF, Chemo, Hep., AIDS, mental health diagnosis, sleep apnea, morbid obesity)? @ -none Was patient admitted / discharged? Hospital course, mention meds given and route, prescriptions, significant lab abnormalities, going to OR and other pertinent info. @ - 82 female to the ER with acute CVA, patient presents today for evaluation of slurred speech, left-sided facial droop. Patient is outside the window for TPA secondary to unknown onset of symptoms likely wake up stroke, patient is found to be confused by find him Route phone call and then noted facial droop impression both early this afternoon. Computed tomography scan is positive for CVA also and further proving early onset of symptoms much prior to arrival Admitted Undiagnosed new problem with uncertain prognosis? @ -no Drug Therapy requiring intensive monitoring for toxicity (Heparin, Nitro, Insulin, Cardizem)? @ -no Were any procedures done? @ -no Diagnosis/symptom? @ -CVA Acute, or Chronic, or Acute on Chronic? @ -Acute Uncomplicated (without systemic symptoms) or Complicated (systemic symptoms)? @ -Complicated Side effects of treatment? @ -no Exacerbation, Progression, or Severe Exacerbation? @ -exacerbation Poses a threat to life or bodily function? How? (Chest pain, [place], MT, pneumonia, PE, COPD, DKA, ARF, appy, cholecystitis, CVA, Diverticulitis, Homicidal, Suicidal, threat to staff... and all critical care pts) @ -yes with CVA Reevaluation #5: Differential CVA Ischemic stroke, hemorrhagic stroke, brain tumor, atypical migraine, Wernicke's encephalopathy, seizure, multiple sclerosis, meningitis, encephalitis, hypoglycemia, Guillain-Daugherty, electrolytes disturbance, myasthenia gravis.... This is not meant to be an all-inclusive list Critical Care Time Critical Care Time: Yes Total Critical Care Time: 31 Disposition Clinical Impression: Cerebrovascular accident (CVA) Disposition: ADMITTED IP TO THIS [facility] Condition: Serious Is patient prescribed a controlled substance at d/c from ED?: No Time of Disposition: 21:00
[2022-12-23 18:44] LABS: INR 0.9 (<1.2); Prothrombin Time 9.9 sec (9.0-12.0)
[2022-12-23 18:52] LABS: ALT 19 U/L (4-34); AST 29 U/L (14-36); African American GFR (CKD) 80 (>60 ml/min/1.73 sqM); Albumin 4.1 g/dL (3.5-5.0); Alkaline Phosphatase 79 U/L (38-126); Anion Gap 7 mmol/L; Blood Urea Nitrogen 21 mg/dL (7-17); Calcium 9.5 mg/dL (8.4-10.2); Carbon Dioxide 27 mmol/L (22-30); Chloride 105 mmol/L (98-107); Glucose 99 mg/dL (74-99); Magnesium 2.1 mg/dL (1.6-2.3); Non-African American GFR(CKD) 69 (>60 ml/min/1.73 sqM); Potassium 4.5 mmol/L (3.5-5.1); Sodium 139 mmol/L (137-145); Total Bilirubin 0.5 mg/dL (0.2-1.3); Total Protein 7.4 g/dL (6.3-8.2)
[2022-12-23 19:11] LABS: Phosphorus 4.9 mg/dL (2.5-4.5)
[2022-12-23 19:12] LABS: Appearance,Urine Clear (Clear); Bilirubin,Urine Negative (Negative); Blood,Urine Negative (Negative); Color,Urine Colorless; Glucose,Urine (UA) Negative (Negative); Ketones,Urine Negative (Negative); Leukocyte Esterase,Urine Negative (Negative); Nitrite,Urine Negative (Negative); PH, Urine 6.5 (5.0-8.0); Protein,Urine Negative (Negative); Specific Gravity,Urine 1.003 (1.001-1.035); Urobilinogen,Urine <2.0 mg/dL (<2.0)
[2022-12-23 19:29] LABS: Eosinophils # (M) 0.03 k/uL (0-0.7); Lymphocytes # (M) 1.53 k/uL (1.0-4.8); Monocytes # (M) 0.18 k/uL (0-1.0); Neutrophils # (M) 1.26 k/uL (1.3-7.7); Neutrophils % (M) 42 %; Nucleated Red Blood Cells 0 /100 WBC (0-0); Total Cells Counted 100
--- NOTE | 2022-12-23 19:58 | CT ---
EXAMINATION TYPE: CT angio head neck DATE OF EXAM: 12/23/2022 COMPARISON: CT brain 12/23/2022 HISTORY: Neuro deficit CT DLP: 372.9 mGycm CONTRAST: Performed with IV Contrast, patient injected with 65ml mL of Isovue 370. Combination Contrast CTA cervical carotids and [place] CTA cervical carotids with 3-D recons truction Contrast CTA of the cervical carotids was performed 3-D reconstruction imaging obtained at a separate workstation. Right carotid system: Mild plaque is seen of the right common carotid artery. There is mild plaque a lso noted at the carotid bulb and proximal ICA. No significant diameter reduction. ECA is patent. Right vertebral artery appears unremarkable. Left carotid system: Mild plaque is seen of the left common carotid artery. There is mild plaque als o noted at the carotid bulb and proximal ICA. No significant diameter reduction. ECA is patent. Lef t vertebral artery appears unremarkable. IMPRESSION: 1. No significant diameter reduction to account for the patient's symptoms. CTA [place] with 3-D reconstruction Contrast CTA of the [place] was performed 3-D reconstruction imaging obtained at a separate workstation. Vertebrobasilar system as well as intracranial portions of the internal carotid arteries and their ma denise tributaries are patent. Dominant left vertebral artery noted. I do not see evidence for sizable a neurysm or vascular malformation. Please note MRI provides greater sensitivity and specificity. Vis ualized brain appears grossly unremarkable. IMPRESSION: 1. No significant abnormality. NASCET criteria was used in interpretation of this exam?
[2022-12-23] MEDS ORDERED: ASPIRIN 325 MG TAB PO STA (21:16)
[2022-12-23] MEDS: SODIUM CHLORIDE 0.9% 1,000 ML IV SCH (22:14)
[2022-12-24] MEDS: SODIUM CHLORIDE 0.9% 1,000 ML IV SCH ×2 (07:25→11:43)
[2022-12-24] MEDS: ASPIRIN 325 MG TAB PO SCH (08:22)
[2022-12-24] MEDS: CLOPIDOGREL 75 MG TAB PO SCH (10:07)
--- NOTE | 2022-12-24 10:14 | P.CNNES ---
History of Present Illness Consult date: 12/24/22 Requesting physician: Raul Diaz Reason for Consult: cva History of Present Illness: This is an 82-year-old woman presents emergency department on the 12/23/2022 because of left facial droop and some confusion. Some fo the history is obtained from the patient's daughter who is at bedside. Per daughter, yesterday around 10am the patient face-timed her and patient was at her normal state. But then at 1pm, she called her and was confused. Then daughter went over her house and noticed she had left lower facial droop. Otherwise no other neurological issues. Per daughter yesterday she was doing well then became again confused overnight. Denies history of stroke in the past. She feels she is doing well besides left lower facial droop. She is on ASA 81mg daily. She has history of left breast cancer and is on medication but per daughter was told not chem and patient has not received radiation therapy. She is following-up with Oncologist. Denies history of atrial fibrillation. Some other workup during his hospital visit consisted of: CT of the head is reported as acute area of ischemic insult involving the right caudate nucleus and putamen. No evidence for hemorrhagic transformation. No midline shift. I personally reviewed the CT and I agree there is acute changes over the right basal ganglia. CT angiography of the head and neck was reported as no significant diameter reduction to account for the patient's symptoms. No significant abnormality. Per the ED team her NIH stroke scale was 3. The points was 2 for facial droop and 1 for aphasia No IV TPA per the ED team since the onset of symptoms is 4-1/2 hours and it seems that the risk of TPA outweigh the benefit. Review of Systems Review of system: The 12 point system was reviewed and apparent positive and negative per HPI. Past Medical History Past Medical History: Cancer, Thyroid Disorder Additional Past Medical History / Comment(s): hard of hearing, bilat hearing aid, lt breast History of Any Multi-Drug Resistant Organisms: None Reported Past Surgical History: Cholecystectomy Past Anesthesia/Blood Transfusion Reactions: No Reported Reaction Past Psychological History: No Psychological Hx Reported Smoking Status: Former smoker Past Alcohol Use History: None Reported, Rare Past Drug Use History: None Reported Medications and Allergies Home Medications Medication Instructions Recorded Confirmed Type Letrozole 2.5 mg PO DAILY 09/22/22 12/23/22 History Levothyroxine Sodium [Synthroid] 100 mcg PO DAILY 09/22/22 12/23/22 History Palbociclib [Ibrance] 125 mg PO DIRECTED 09/22/22 12/23/22 History ALPRAZolam [Xanax] 0.25 mg PO DAILY PRN 12/23/22 12/23/22 History Ondansetron [Zofran] 4 mg PO TID PRN 12/23/22 12/23/22 History Allergies Allergy/AdvReac Type Severity Reaction Status Date / Time No Known Allergies Allergy Verified 12/23/22 20:02 Physical Examination - Vital Signs Vital Signs: Vital Signs Temp Pulse Resp BP Pulse Ox 12/24/22 09:10 97.8 F 64 17 173/73 100 12/24/22 07:25 97.9 F 71 16 115/53 96 12/24/22 07:00 54 L 18 121/58 95 12/24/22 06:50 54 L 18 121/58 95 12/24/22 06:40 51 L 16 121/58 96 12/24/22 06:30 53 L 17 121/58 97 12/24/22 06:20 50 L 17 121/58 97 12/24/22 06:10 49 L 17 121/58 98 12/24/22 06:00 52 L 18 119/50 96 12/24/22 05:00 53 L 17 147/58 94 L 12/24/22 04:00 61 16 120/99 96 12/24/22 03:00 61 13 151/50 97 12/24/22 02:00 19 148/66 96 12/24/22 01:00 69 19 139/76 95 12/24/22 00:50 66 139/76 94 L 12/23/22 22:00 67 18 156/70 97 12/23/22 21:30 63 16 176/68 99 12/23/22 21:00 68 16 180/90 97 12/23/22 20:30 72 15 168/71 99 12/23/22 19:30 66 19 184/70 98 12/23/22 18:40 66 171/72 97 12/23/22 18:00 74 17 199/78 97 12/23/22 17:53 72 16 199/78 98 12/23/22 17:41 98.1 F 63 20 188/88 98 Intake and Output 08/17/23 08/18/23 08/18/23 22:59 06:59 14:59 Other: Weight 52.617 kg GENERAL: The patient is lying in bed and is not in acute distress. NEUROLOGICAL: Higher mental function: The patient is awake, alert, oriented to self, place and time. Patient is following commands. No aphasia and no neglect. Cranial nerves: The pupils are round, equal and reactive to light. Visual everett are full to confrontation throughout. Extraocular movement is intact no nystagmus is noted. Facial sensation is normal to touch throughout. Has mild left lower facial droop. Hearing is moderately decreased bilaterally to hand rub. Tongue is midline and moved [id number] without any difficulty. No dysarthria is noted. Shoulder shrug is normal bilaterally. Motor: The strength is 5 over 5 throughout. Normal tone and bulk. Cerebellum: Normal finger to nose bilaterally. Sensation: Sensation is normal to touch throughout. Reflexes (right/left): 2+ throughout uppers but was resisting in lowers so hard to assess. Plantars are downgoing bilaterally. Results - Laboratory Findings CBC and BMP: 12/23/22 17:53 12/23/22 17:53 Abnormal Lab Findings: Abnormal Labs 12/23/22 12/23/22 17:53 17:53 WBC 3.0 L RBC 3.45 L MCV 103.0 H MCH 36.2 H Neutrophils # (Manual) 1.26 L BUN 21 H Phosphorus 4.9 H Assessment and Plan Assessment: This is an 82-year-old woman who presents our facility on 12/23/2022 because of facial droop as well as some confusion per the ED team. NIH stroke scale was a 3 and 2 points for facial droop and [address] of the head shows right caudate nucleus and putamen acute ischemic stroke. No IV TPA because of outside the window. Acute right basal ganglia stroke (caudate/putamen) and has left lower facial droop. History of left breast cancer in 07/2022 Hypothyroidism Hard of hearing Plan: In the ED the patient was started on aspirin 325mg daily (at home she was on ASA 81mg daily). I also started Plavix 75 mg daily. She was also started on Lipitor 80 mg daily at bedtime and I lowered it to 40 mg daily at bedtime for secondary stroke prophylaxis I ordered MRI the brain w/ and w/o, hemoglobin A1c, TSH 2-D echo, lipid panels order is pending Because of recurrent confusion, ordered routine EEG to rule out any underlying seizure or discharges. Continue neuro checks Cardiac monitoring PT OT and HELIOTHERAPIST are consulted Defer the rest of the medical management to the primary team For DVT prophylaxis I started the patient on subcu heparin 5000 units every 12 hours. The plan is discussed with patient and her daughter who is at bedside. Thank you for the consultation. Dr. Merida will start neurology service tomorrow A.M. Time with Patient: Greater than 30
[2022-12-24 10:47] LABS: LDL Cholesterol,Calculated 116.6 mg/dL (0.0-131.0)
--- NOTE | 2022-12-24 11:03 | CA ---
Transthoracic Echo Report Name: Wendy Riddle Age: 82 Gender: F : 1940 Exam Date: 12/24/2022 08:19 Exam Location: [place] [facility] Ht (in): 61 Wt (lb): 116 Ordering Physician: Raul Diaz DO Attending/Referring Phys: [id number], Joe Rock Cutter Ashlee Martins [facility] Procedure CPT: Indications: Thrombus Cardiac Hx: Technical Quality: Contrast 1: Total Dose (mL): Contrast 2: Total Dose (mL): MEASUREMENTS (Male / Female) Normal Values 2D ECHO LV Diastolic Diameter PLAX 4.5 cm 4.2 - 5.9 / 3.9 - 5.3 cm LV Systolic Diameter PLAX 3.4 cm IVS Diastolic Thickness 0.6 cm 0.6 - 1.0 / 0.6 - 0.9 cm LVPW Diastolic Thickness 0.8 cm 0.6 - 1.0 / 0.6 - 0.9 cm LV Relative Wall Thickness 0.3 LVOT Diameter 1.9 cm Ascending Aorta Diameter 3.6 cm M-MODE Aortic Root Diameter MM 3.0 cm LA Systolic Diameter MM 2.7 cm LA Ao Ratio MM 0.9 AV Cusp Separation MM 1.9 cm DOPPLER AV Peak Velocity 112.5 cm/s AV Peak Gradient 5.1 mmHg AV Mean Velocity 87.0 cm/s AV Mean Gradient 3.3 mmHg AV Velocity Time Integral 31.3 cm AI Peak Velocity 352.6 cm/s AI Peak Gradient 49.7 mmHg AI Pressure Half Time 425.2 ms LVOT Peak Velocity 82.3 cm/s LVOT Peak Gradient 2.7 mmHg LVOT Velocity Time Integral 24.3 cm LVOT Stroke Volume 69.6 cm??? LVOT Stroke Volume Index 46.4 ml/m??? AV Area Cont Eq vti 2.2 cm??? AV Area Cont Eq pk 2.1 cm??? Mitral E Point Velocity 69.6 cm/s Mitral A Point Velocity 66.9 cm/s Mitral E to A Ratio 1.0 MV Deceleration Time 112.6 ms LV E' Lateral Velocity 9.0 cm/s Mitral E to LV E' Lateral Ratio 7.7 LV E' Septal Velocity 7.8 cm/s Mitral E to LV E' Septal Ratio 8.9 TR Peak Velocity 232.8 cm/s TR Peak Gradient 21.7 mmHg Right Atrial Pressure 8.0 mmHg Pulmonary Artery Systolic Pressu 29.7 mmHg Right Ventricular Systolic Press 29.7 mmHg FINDINGS Left Ventricle Normal Left ventricular size, wall thickness, systolic function with no obvious regional wall motion abnormalities. Left ventricular ejection fraction is estimated at 50-55%. Right Ventricle Normal right ventricular size and function. Right Atrium Normal right atrial size. Left Atrium Left atrial size at the upper limits of normal. Mitral Valve Structurally normal mitral valve. Mild mitral regurgitation. Aortic Valve Trileaflet aortic valve. Moderate aortic regurgitation. Tricuspid Valve Structurally normal tricuspid valve. [id number] tricuspid regurgitation. Pulmonic Valve Pulmonic valve not well visualized. No pulmonic regurgitation. Pericardium Minimal pericardial effusion (normal variant). Echo free space anterior to the right ventricle likely represents a fat pad. Aorta Normal size aortic root and proximal ascending aorta. CONCLUSIONS Normal LV systolic function Mild mitral regurgitation Moderate aortic regurgitation Previewed by: Dr. Rolo Rios MD (Electronically Signed) Final Date: 24 December 2022 11:03
[2022-12-24] MEDS ORDERED: LEVOTHYROXINE 100 MCG TAB PO ONE (11:36)
[2022-12-24] MEDS: LETROZOLE 2.5 MG TAB PO SCH (11:40)
--- NOTE | 2022-12-24 14:26 | MR ---
EXAMINATION TYPE: MR brain wo/w con DATE OF EXAM: 12/24/2022 COMPARISON: CT brain 12/23/2022 HISTORY: Left facial droop, hx breast cancer. CONTRAST: Performed utilizing 5.5 mL intravenous Gadavist gadolinium contrast. TECHNIQUE: Multiplanar, multiecho imaging on a 3.0 Helen magnet is performed through the brain. Stud y is performed within 24 hours of arrival to the hospital. The craniovertebral junction is normal. The pituitary is normal. Diffusion-weighted imaging is performed. There is hyperintense signal on diffusion imaging through t he right caudate head and basal ganglia compatible with acute ischemic changes. Couple punctate ische jade changes are in the periventricular white matter. Acute ischemic areas are hyperintense on inversion recovery and T2-weighted sequences. Some mild sabino ventricular white matter ischemic changes are present. Ventricles and sulci are appropriate for the patient age. IMPRESSIONS: 1. Acute ischemic changes through the right caudate head and basal ganglia.
--- NOTE | 2022-12-24 15:25 | P.HPIM ---
History of Present Illness H&P Date: 12/24/22 Chief Complaint: Confusion 82-year-old woman presents emergency department on the 12/23/2022 because of left facial droop and some confusion. Some fo the history is obtained from the patient's daughter who is at bedside. Per daughter, yesterday around 10am the patient face-timed her and patient was at her normal state. But then at 1pm, she called her and was confused. Then daughter went over her house and noticed she had left lower facial droop. Otherwise no other neurological issues. Per daughter yesterday she was doing well then became again confused overnight. Denies history of stroke in the past. She feels she is doing well besides left lower facial droop. She is on ASA 81mg daily. She has history of left breast cancer and is on medication but per daughter was told not chem and patient has not received radiation therapy. She is following-up with Oncologist. Denies history of atrial fibrillation. Workup completed the ED today includes CT of the head is reported as acute area of ischemic insult involving the right caudate nucleus and putamen. No evidence for hemorrhagic transformation. No midline shift. CT angiography of the head and neck was reported as no significant diameter reduction to account for the patient's symptoms. No significant abnormality. Per the ED team her NIH stroke scale was 3. The points was 2 for facial droop and 1 for aphasia No IV TPA per the ED team since the onset of symptoms is 4-1/2 hours and it seems that the risk of TPA outweigh the benefit. Review of Systems REVIEW OF SYSTEMS: CONSTITUTIONAL: No fever, no malaise, no fatigue. HEENT: No recent visual problems or hearing problems. Denied any sore throat. CARDIOVASCULAR: No chest pain, orthopnea, PND, no palpitations, no syncope. PULMONARY: No shortness of breath, no cough, no hemoptysis. GASTROINTESTINAL: No diarrhea, no nausea, no vomiting, no abdominal pain. NEUROLOGICAL: No headaches, no weakness, no numbness. HEMATOLOGICAL: Denies any bleeding or petechiae. GENITOURINARY: Denies any burning micturition, frequency, or urgency. MUSCULOSKELETAL/RHEUMATOLOGICAL: Denies any joint pain, swelling, or any muscle pain. ENDOCRINE: Denies any polyuria or polydipsia. The rest of the 14-point review of systems is negative. Past Medical History Past Medical History: Cancer, Thyroid Disorder Additional Past Medical History / Comment(s): hard of hearing, bilat hearing aid, lt breast History of Any Multi-Drug Resistant Organisms: None Reported Past Surgical History: Cholecystectomy Past Anesthesia/Blood Transfusion Reactions: No Reported Reaction Past Psychological History: No Psychological Hx Reported Smoking Status: Former smoker Past Alcohol Use History: None Reported, Rare Past Drug Use History: None Reported Medications and Allergies Home Medications Medication Instructions Recorded Confirmed Type Letrozole 2.5 mg PO DAILY 09/22/22 12/23/22 History Levothyroxine Sodium [Synthroid] 100 mcg PO DAILY 09/22/22 12/23/22 History Palbociclib [Ibrance] 125 mg PO DIRECTED 09/22/22 12/23/22 History ALPRAZolam [Xanax] 0.25 mg PO DAILY PRN 12/23/22 12/23/22 History Ondansetron [Zofran] 4 mg PO TID PRN 12/23/22 12/23/22 History Allergies Allergy/AdvReac Type Severity Reaction Status Date / Time No Known Allergies Allergy Verified 12/23/22 20:02 Physical Exam Vitals: Vital Signs Temp Pulse Resp BP Pulse Ox 12/24/22 11:45 97.6 F 64 16 194/71 99 12/24/22 09:10 97.8 F 64 17 173/73 100 12/24/22 07:25 97.9 F 71 16 115/53 96 12/24/22 07:00 54 L 18 121/58 95 12/24/22 06:50 54 L 18 121/58 95 12/24/22 06:40 51 L 16 121/58 96 12/24/22 06:30 53 L 17 121/58 97 12/24/22 06:20 50 L 17 121/58 97 12/24/22 06:10 49 L 17 121/58 98 12/24/22 06:00 52 L 18 119/50 96 12/24/22 05:00 53 L 17 147/58 94 L 12/24/22 04:00 61 16 120/99 96 12/24/22 03:00 61 13 151/50 97 12/24/22 02:00 19 148/66 96 12/24/22 01:00 69 19 139/76 95 12/24/22 00:50 66 139/76 94 L 12/23/22 22:00 67 18 156/70 97 12/23/22 21:30 63 16 176/68 99 12/23/22 21:00 68 16 180/90 97 12/23/22 20:30 72 15 168/71 99 12/23/22 19:30 66 19 184/70 98 12/23/22 18:40 66 171/72 97 12/23/22 18:00 74 17 199/78 97 12/23/22 17:53 72 16 199/78 98 12/23/22 17:41 98.1 F 63 20 188/88 98 Intake and Output 12/23/22 12/24/22 12/24/22 22:59 06:59 14:59 Other: Weight 52.617 kg Constitutional; patient is resting in bed; opens eyes to verbal stimulation; not in any acute distress EENT Eyes: Present: anicteric sclerae, EOMI, PERRLA, normal appearance Neck: Present: normal ROM. Absent: lymphadenopathy, rigidity, thyromegaly Respiratory: bilateral: CTA, negative: rales, rhonchi, wheezing Cardiovascular: regular: normal: S1, S2 General gastrointestinal: Present: normal bowel sounds, soft. Absent: distended, organomegaly, tenderness Genitourinary Comment(s): deferred Integumentary: Present: normal turgor. Absent: jaundiced, rash, ulcer Neurologic: Present: CNII-XII intact. Absent: focal deficits Musculoskeletal: Present: gait normal, strength equal bilatera Results CBC & Chem 7: 12/23/22 17:53 12/23/22 17:53 Labs: Abnormal Lab Results - Last 24 Hours (Table) 12/23/22 12/23/22 12/23/22 Range/Units 17:53 17:53 17:53 WBC 3.0 L (3.8-10.6) k/uL RBC 3.45 L (3.80-5.40) m/uL MCV 103.0 H (80.0-100.0) fL MCH 36.2 H (25.0-35.0) pg Neutrophils # (Manual) 1.26 L (1.3-7.7) k/uL BUN 21 H (7-17) mg/dL Phosphorus 4.9 H (2.5-4.5) mg/dL Triglycerides 185.00 H (0.00-149.00) mg/dL HDL Cholesterol 38.40 L (40.00-60.00) mg/dL Assessment and Plan Assessment: 1. 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 of the head shows right caudate nucleus and putamen acute ischemic stroke. No IV TPA because of outside the window. Patient has been evaluated by neurology -- ordered MRI the brain w/ and w/o, hemoglobin A1c, TSH 2-D echo, lipid panels order is pending Because of recurrent confusion, neurology ordered routine EEG to rule out any underlying seizure or discharges. Continue neuro checks Cardiac monitoring PT OT and BOAT CLEANER are consulted 2. Hypothyroidism; levothyroxin 100 MCG daily 3. Anxiety Xanax 0.25 mg daily 4. History of breast cancer; continue with home dose of letrozole 2.5 mg daily DVT prophylaxis; SCDs/subcu heparin 5000 units subcu every 12 hours CODE STATUS; full code
--- NOTE | 2022-12-24 17:17 | EEG ---
ELECTROENCEPHALOGRAM REPORT CLINICAL HISTORY: This is an 82-year-old woman with episode of confusion. The video EEG is obtained to evaluate for seizure and epileptiform activity. RELEVANT MEDICATION: Xanax. EEG TYPE: A routine 21-channel EEG with video using the 10/20 electrode placement system was used. DESCRIPTION: Wakefulness and drowsiness are obtained. During awake state, the background consists of 8 to 8.5 Hz activity. There is no physiological stage II sleep architecture. Drowsy state is obtained. There is no focal slowing. INTERICTAL AND ICTAL: None. ACTIVATION PROCEDURE: Photic stimulation did evoke a posterior driving response at multiple flash frequencies. There is no abnormality during the photic stimulation. Hyperventilation is not performed. CLINICAL INTERPRETATION: This is a normal routine EEG. There is no focal slowing, epileptiform discharge, or seizure on the EEG. Clinical correlation is recommended. MMSEJAL / SHAUN: [id number] / MTDD
[2022-12-24] MEDS: HEPARIN SODIUM,PORCINE 5,000 UNIT/ML 1 ML VIAL SQ SCH (20:55)
[2022-12-24] MEDS: ATORVASTATIN 40 MG TAB PO SCH (20:55)
[2022-12-24] MEDS ORDERED: ATORVASTATIN 80 MG TAB PO SCH (21:00)
[2022-12-25] MEDS: LEVOTHYROXINE 100 MCG TAB PO SCH ×2 (08:03→08:05)
[2022-12-25] MEDS: CLOPIDOGREL 75 MG TAB PO SCH (09:44)
[2022-12-25] MEDS: ASPIRIN 325 MG TAB PO SCH (09:44)
[2022-12-25] MEDS: LETROZOLE 2.5 MG TAB PO SCH (09:44)
[2022-12-25] MEDS: HEPARIN SODIUM,PORCINE 5,000 UNIT/ML 1 ML VIAL SQ SCH ×2 (09:44→20:27)
[2022-12-25] MEDS ORDERED: LEVOTHYROXINE 100 MCG TAB PO ONE (11:24)
[2022-12-25 11:42] LABS: African American GFR (CKD) >90 (>60 ml/min/1.73 sqM); Anion Gap 9 mmol/L; Blood Urea Nitrogen 15 mg/dL (7-17); Calcium 8.1 mg/dL (8.4-10.2); Carbon Dioxide 21 mmol/L (22-30); Chloride 110 mmol/L (98-107); Glucose 147 mg/dL (74-99); Non-African American GFR(CKD) 83 (>60 ml/min/1.73 sqM); Potassium 3.8 mmol/L (3.5-5.1); Sodium 140 mmol/L (137-145)
[2022-12-25 11:51] LABS: Basophils % (A) 2 %; Eosinophils # (A) 0.1 k/uL (0-0.7); Eosinophils % (A) 3 %; HCT 33.3 % (34.0-46.0); HGB 11.3 gm/dL (11.4-16.0); Lymphocytes # (A) 0.9 k/uL (1.0-4.8); Lymphocytes % (A) 36 %; MCH 35.6 pg (25.0-35.0); MCV 104.6 fL (80.0-100.0); Macrocytosis Moderate; Mean Platelet Volume 7.5; Monocytes # (A) 0.1 k/uL (0-1.0); Monocytes % (A) 5 %; Neutrophils # (A) 1.2 k/uL (1.3-7.7); Neutrophils % (A) 50 %; Platelet Count 199 k/uL (150-450); RBC 3.18 m/uL (3.80-5.40); RDW 14.9 % (11.5-15.5); WBC 2.4 k/uL (3.8-10.6)
[2022-12-25] MEDS: SODIUM CHLORIDE 0.9% 1,000 ML IV SCH ×2 (12:58→20:28)
--- NOTE | 2022-12-25 13:39 | P.PN ---
Subjective Progress Note Date: 12/25/22 Patient was seen for a follow-up. Patient was seen by Dr. Mateusz Lopez yesterday. Please refer to his note for details. Patient is a 82-year-old right-handed female with acute right basal ganglia stroke. Patient's multiple family members were present today. They mention that patient is doing much better. She still has moments of confusion. Last night when she woke up, she thought she was at her daughter's house. Patient has mild left facial droop, otherwise speech is normal. Her balance is good. She was able to flush the toilet with a right foot indicating good balance. Patient denies any numbness tingling focal weakness. No visual disturbance. Patient has history of breast cancer, and has undergone chemotherapy with Zometa 2 times in the past, the last infusion was on 12/13/2022. The next dose is due in March. Since her last infusion, she was not feeling well. Not able to sw allow. Objective - Vital Signs Vital signs: Vital Signs Temp 97.5 F L 12/25/22 09:40 Pulse 68 12/25/22 12:20 Resp 16 12/25/22 12:20 BP 134/60 12/25/22 12:20 Pulse Ox 96 12/25/22 12:20 FiO2 Intake & Output 12/24/22 12/25/22 12/25/22 18:59 06:59 18:59 Weight 52.617 kg Other: # Voids 5 # Bowel Movements 1 - Exam Patient is an elderly female, very pleasant, in no acute distress. Patient is alert awake oriented to time place and person. Knows it is December 2022 and that she is in [facility]. Speech and language functions are normal. Patient can name and repeat very well. No aphasia or dysarthria. Attention, concentration and fund of knowledge is adequate. On cranial nerve examination, pupils are equal, round and reacting to light, visual everett are full on confrontation, with no neglect on double simultaneous stimulation. Extraocular muscles are intact with no nystagmus. Patient has very subtle left facial asymmetry. Her tongue protrudes to the midline. Palatal elevation and sensation normal, hearing is mild to moderately decreased and shoulder shrug normal, facial sensation normal. On muscle strength testing, there is mild left pronation, but no drift. However the strength is normal in arms and legs distally and proximally. Sensory to touch is equal with no neglect on double simultaneous stimulation. Cerebellar function showed no ataxia for [id number] testing. No dysdiadochokinesia. Tone and bulk of muscles normal. Gait deferred.. On general examination, there is no carotid bruit or murmur, S1-S2 audible. Chest is clear on consultation. Abdomen is soft nontender. No organomegaly, bowel sounds present. Peripheral pulses are present. No edema. - Labs CBC & Chem 7: 12/25/22 10:57 12/25/22 10:57 Labs: Abnormal Lab Results - Last 24 Hours (Table) 12/24/22 12/25/22 12/25/22 Range/Units 11:40 10:57 10:57 WBC 2.4 L (3.8-10.6) k/uL RBC 3.18 L (3.80-5.40) m/uL Hgb 11.3 L (11.4-16.0) gm/dL Hct 33.3 L (34.0-46.0) % MCV 104.6 H (80.0-100.0) fL MCH 35.6 H (25.0-35.0) pg Neutrophils # 1.2 L (1.3-7.7) k/uL Lymphocytes # 0.9 L (1.0-4.8) k/uL Chloride 110 H (98-107) mmol/L Carbon Dioxide 21 L (22-30) mmol/L Glucose 147 H (74-99) mg/dL Hemoglobin A1c 6.3 H (<=6.0) % Calcium 8.1 L (8.4-10.2) mg/dL Assessment and Plan Assessment: This is an 82-year-old woman who presents our facility on 12/23/2022 because of facial droop as well as some confusion per the ED team. NIH stroke scale was a 3 and 2 points for facial droop and [address] and MRI of the head shows right caudate nucleus and putamen acute ischemic stroke. No IV TPA because of outside the window. Acute right basal ganglia stroke (caudate/putamen) and has left lower facial droop. Intermittent confusion, likely due to acute CVA. Moderate aortic regurgitation. Rule out cardiac source. History of left breast cancer in 07/2022 Hypothyroidism Hard of hearing Plan: Patient is doing much better. Her current NIH stroke scale is 2, with very subtle left facial asymmetry and left pronation but no drift. In the ED the patient was started on aspirin 325mg daily (at home she was on ASA 81mg daily). Dr. Mateusz Lopez also started Plavix 75 mg daily. She was also started on Lipitor 80 mg daily at bedtime and he lowered it to 40 mg daily at bedtime for secondary stroke prophylaxis MRI the brain w/ and w/o revealed acute ischemic stroke in the right caudate head and basal ganglia. I personally reviewed MRI and agree with the findings. I also reviewed MRI of the brain on the computer with the family. Hemoglobin A1c 6.3, TSH normal 2-D echo revealed left ventricular ejection fraction 50-55%. Moderate AR, mild MR, left atrial size upper limits of normal. Recommend MATTHEW, rule out embolic source. Also suggest 30 day event monitor after discharge. Lipid panel cholesterol 192, LDL 116, HDL 38, triglycerides 185. Continue Lipitor 40 mg. CTA of head and neck revealed no significant stenosis, occlusion. EEG was normal. No epileptiform activity seen. Continue neuro checks Cardiac monitoring PT OT and [employer]ECKT[employer] are consulted Defer the rest of the medical management to the primary team For DVT prophylaxis I started the patient on subcu heparin 5000 units every 12 hours.
--- NOTE | 2022-12-25 18:06 | P.PN ---
Subjective Progress Note Date: 12/25/22 82-year-old woman presents emergency department on the 12/23/2022 because of left facial droop and some confusion. Some fo the history is obtained from the patient's daughter who is at bedside. Per daughter, yesterday around 10am the patient face-timed her and patient was at her normal state. But then at 1pm, she called her and was confused. Then daughter went over her house and noticed she had left lower facial droop. Otherwise no other neurological issues. Per daughter yesterday she was doing well then became again confused overnight. Denies history of stroke in the past. She feels she is doing well besides left lower facial droop. She is on ASA 81mg daily. She has history of left breast cancer and is on medication but per daughter was told not chem and patient has not received radiation therapy. She is following-up with Oncologist. Denies history of atrial fibrillation. Workup completed the ED today includes CT of the head is reported as acute area of ischemic insult involving the right caudate nucleus and putamen. No evidence for hemorrhagic transformation. No midline shift. CT angiography of the head and neck was reported as no significant diameter reduction to account for the patient's symptoms. No significant abnormality. Per the ED team her NIH stroke scale was 3. The points was 2 for facial droop and 1 for aphasia No IV TPA per the ED team since the onset of symptoms is 4-1/2 hours and it seems that the risk of TPA outweigh the benefit. -- MRI of the brain reveals acute CVI right caudate head and nasal ganglia; EEG is negative - Patient has been placed on aspirin, Plavix and Lipitor - PT/OT evaluation is pending Objective - Vital Signs Vital signs: Vital Signs Temp 97.4 F L 12/25/22 04:00 Pulse 68 12/25/22 04:00 Resp 16 12/25/22 04:00 BP 165/75 12/25/22 04:00 Pulse Ox 98 12/25/22 07:47 FiO2 Intake & Output 12/24/22 12/25/22 12/25/22 18:59 06:59 18:59 Weight 52.617 kg Other: # Voids 5 # Bowel Movements 1 - Exam Constitutional; patient is resting in bed; opens eyes to verbal stimulation; not in any acute distress EENT Eyes: Present: anicteric sclerae, EOMI, PERRLA, normal appearance Neck: Present: normal ROM. Absent: lymphadenopathy, rigidity, thyromegaly Respiratory: bilateral: CTA, negative: rales, rhonchi, wheezing Cardiovascular: regular: normal: S1, S2 General gastrointestinal: Present: normal bowel sounds, soft. Absent: distended, organomegaly, tenderness Genitourinary Comment(s): deferred Integumentary: Present: normal turgor. Absent: jaundiced, rash, ulcer Neurologic: Present: CNII-XII intact. Absent: focal deficits Musculoskeletal: Present: gait normal, strength equal bilatera - Labs CBC & Chem 7: 12/25/22 10:57 12/25/22 10:57 Labs: Abnormal Lab Results - Last 24 Hours (Table) 12/23/22 12/24/22 Range/Units 17:53 11:40 Hemoglobin A1c 6.3 H (<=6.0) % Triglycerides 185.00 H (0.00-149.00) mg/dL HDL Cholesterol 38.40 L (40.00-60.00) mg/dL Assessment and Plan Assessment: 1. 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 of the head shows right caudate nucleus and putamen acute ischemic stroke. No IV TPA because of outside the window. Patient has been evaluated by neurology -- ordered MRI the brain w/ and w/o, hemoglobin A1c, TSH 2-D echo, lipid panels order is pending Because of recurrent confusion, neurology ordered routine EEG to rule out any underlying seizure or discharges. Continue neuro checks Cardiac monitoring PT OT and FIXTURE FABRICATOR REPAIRER are consulted 2. Hypothyroidism; levothyroxin 100 MCG daily 3. Anxiety Xanax 0.25 mg daily 4. History of breast cancer; continue with home dose of letrozole 2.5 mg daily DVT prophylaxis; SCDs/subcu heparin 5000 units subcu every 12 hours CODE STATUS; full code
[2022-12-25] MEDS: ATORVASTATIN 40 MG TAB PO SCH (20:27)
[2022-12-26] MEDS: SODIUM CHLORIDE 0.9% 1,000 ML IV SCH ×3 (00:14→22:48)
[2022-12-26] MEDS: CLOPIDOGREL 75 MG TAB PO SCH (09:06)
[2022-12-26] MEDS: LETROZOLE 2.5 MG TAB PO SCH (09:06)
[2022-12-26] MEDS: ASPIRIN 325 MG TAB PO SCH (09:06)
[2022-12-26] MEDS: HEPARIN SODIUM,PORCINE 5,000 UNIT/ML 1 ML VIAL SQ SCH ×2 (09:09→20:30)
--- NOTE | 2022-12-26 11:07 | P.CRDCN ---
History of Present Illness Consult date: 12/26/22 Chief complaint: Right facial drop History of present illness: This is a 82-year-old female patient with a past medical history significant for breast cancer currently she is on oral hormone therapy but no cardiovascular comorbidities including diabetes or hypertension or dyslipidemia was brought by her family to the emergency department for further evaluation of facial drop on the right side associated with slurred speech/excessive aphasia. No upper or lower extremity weakness or numbness. No change in mental status. No presyncope or syncope. She underwent further evaluation including computed tomography scan of the brain and subsequently MRI of the brain and that revealed acute infarction. She underwent CTA and that showed no evidence of severe carotid atherosclerosis. No symptoms of chest pain or chest discomfort. No shortness of breath and no feeling of heart racing or fluttering. No history of paroxysmal atrial fibrillation. The EKG showed sinus mechanism. The echo revealed normal biventricular dimension and systolic function was evidence of moderate aortic insufficiency. The rest of the blood work came in to be unremarkable except her WBC has been low today. The examination is remarkable for stable vital signs with regular rhythm and systolic murmur and diastolic murmur at the right upper sternal border with a clear breathing sounds bilaterally and no carotid bruit and no lower extremity edema noted Assessment Acute CVA presented as right facial drop and excessive aphasia History of breast cancer currently on hormone therapy Valvular heart disease by recent echo showing moderate aortic insufficiency Plan Continue the current medical regimen Proceed with a transesophageal echocardiogram after we make sure that WBC has not been going further down Further recommendation to follow Past Medical History Past Medical History: Cancer, Thyroid Disorder Additional Past Medical History / Comment(s): hard of hearing, bilat hearing aid, lt breast History of Any Multi-Drug Resistant Organisms: None Reported Past Surgical History: Cholecystectomy Past Anesthesia/Blood Transfusion Reactions: No Reported Reaction Past Psychological History: No Psychological Hx Reported Smoking Status: Former smoker Past Alcohol Use History: None Reported, Rare Additional Past Alcohol Use History / Comment(s): quit 50 plus years ago Past Drug Use History: None Reported - Past Family History Father Family Medical History: Myocardial Infarction ([place]) Mother Family Medical History: CVA/TIA Medications and Allergies Home Medications Medication Instructions Recorded Confirmed Type Letrozole 2.5 mg PO DAILY 09/22/22 12/23/22 History Levothyroxine Sodium [Synthroid] 100 mcg PO DAILY 09/22/22 12/23/22 History Palbociclib [Ibrance] 125 mg PO DIRECTED 09/22/22 12/23/22 History ALPRAZolam [Xanax] 0.25 mg PO DAILY PRN 12/23/22 12/23/22 History Ondansetron [Zofran] 4 mg PO TID PRN 12/23/22 12/23/22 History Allergies Allergy/AdvReac Type Severity Reaction Status Date / Time No Known Allergies Allergy Verified 12/23/22 20:02 Physical Exam Vitals: Vital Signs Temp Pulse Resp BP Pulse Ox 12/26/22 09:05 97.8 F 70 18 134/61 95 12/26/22 04:00 97.8 F 72 18 160/70 98 12/25/22 23:47 98.0 F 70 16 169/68 97 12/25/22 20:00 97.9 F 67 18 178/67 97 12/25/22 16:00 97.8 F 74 18 130/67 97 12/25/22 12:20 68 16 134/60 96 Intake and Output 12/25/22 12/26/22 12/26/22 22:59 06:59 14:59 Intake Total 240 240 Balance 240 240 Intake: Oral 240 240 Other: # Voids 1 1 Results 12/25/22 10:57 12/25/22 10:57 CBC 12/25/22 Range/Units 10:57 WBC 2.4 L (3.8-10.6) k/uL RBC 3.18 L (3.80-5.40) m/uL Hgb 11.3 L (11.4-16.0) gm/dL Hct 33.3 L (34.0-46.0) % Plt Count 199 (150-450) k/uL Comprehensive Metabolic Panel 12/25/22 Range/Units 10:57 Sodium 140 (137-145) mmol/L Potassium 3.8 (3.5-5.1) mmol/L Chloride 110 H (98-107) mmol/L Carbon Dioxide 21 L (22-30) mmol/L BUN 15 (7-17) mg/dL Creatinine 0.64 (0.52-1.04) mg/dL Glucose 147 H (74-99) mg/dL Calcium 8.1 L (8.4-10.2) mg/dL Current Medications Generic Name Dose Route Start Last Admin Trade Name Cait PRN Reason Stop Dose Admin Aspirin 325 mg 12/24/22 09:00 12/26/22 09:06 Aspirin 325 Mg Tab PO 325 mg DAILY SANTIAGO Administration Atorvastatin Calcium 40 mg 12/24/22 21:00 12/25/22 20:27 Atorvastatin 40 Mg Tab PO 40 mg HS SANTIAGO Administration Clopidogrel Bisulfate 75 mg 12/24/22 10:00 12/26/22 09:06 Clopidogrel 75 Mg Tab PO 75 mg DAILY SANTIAGO Administration Heparin Sodium (Porcine) 5,000 unit 12/24/22 21:00 12/26/22 09:09 Heparin Sodium,Porcine 5,000 Unit/Ml 1 Ml Vial SQ 5,000 unit Q12HR SANTIAGO Administration Sodium Chloride 1,000 mls @ 100 mls/hr 12/23/22 21:30 12/26/22 00:14 Saline 0.9% IV Not Given .Q10H SANTIAGO Letrozole 2.5 mg 12/24/22 12:00 12/26/22 09:06 Letrozole 2.5 Mg Tab PO 2.5 mg DAILY SANTIAGO Administration Levothyroxine Sodium 100 mcg 12/25/22 06:30 12/25/22 08:05 Levothyroxine 100 Mcg Tab PO 100 mcg DAILY@0630 SANTIAGO Administration Intake and Output 12/25/22 12/26/22 12/26/22 22:59 06:59 14:59 Intake Total 240 240 Balance 240 240 Intake: Oral 240 240 Other: # Voids 1 1 12/25/22 10:57 12/25/22 10:57
[2022-12-26 15:23] LABS: Basophils % (A) 2 %; Eosinophils # (A) 0.1 k/uL (0-0.7); Eosinophils % (A) 3 %; HCT 33.1 % (34.0-46.0); HGB 11.5 gm/dL (11.4-16.0); Lymphocytes # (A) 1.3 k/uL (1.0-4.8); Lymphocytes % (A) 44 %; MCH 36.2 pg (25.0-35.0); MCHC 34.6 g/dL (31.0-37.0); MCV 104.4 fL (80.0-100.0); Macrocytosis Moderate; Mean Platelet Volume 7.6; Monocytes # (A) 0.2 k/uL (0-1.0); Monocytes % (A) 6 %; Neutrophils # (A) 1.2 k/uL (1.3-7.7); Neutrophils % (A) 42 %; Platelet Count 198 k/uL (150-450); RBC 3.17 m/uL (3.80-5.40); RDW 15.1 % (11.5-15.5); WBC 2.9 k/uL (3.8-10.6)
[2022-12-26 15:33] LABS: African American GFR (CKD) 72 (>60 ml/min/1.73 sqM); Anion Gap 6 mmol/L; Blood Urea Nitrogen 20 mg/dL (7-17); Calcium 8.5 mg/dL (8.4-10.2); Carbon Dioxide 26 mmol/L (22-30); Chloride 108 mmol/L (98-107); Glucose 138 mg/dL (74-99); Non-African American GFR(CKD) 62 (>60 ml/min/1.73 sqM); Potassium 4.1 mmol/L (3.5-5.1); Sodium 140 mmol/L (137-145)
[2022-12-26] MEDS: ATORVASTATIN 40 MG TAB PO SCH (20:28)
--- NOTE | 2022-12-26 20:38 | P.PN ---
Subjective Progress Note Date: 12/26/22 82-year-old woman presents emergency department on the 12/23/2022 because of left facial droop and some confusion. Some fo the history is obtained from the patient's daughter who is at bedside. Per daughter, yesterday around 10am the patient face-timed her and patient was at her normal state. But then at 1pm, she called her and was confused. Then daughter went over her house and noticed she had left lower facial droop. Otherwise no other neurological issues. Per daughter yesterday she was doing well then became again confused overnight. Denies history of stroke in the past. She feels she is doing well besides left lower facial droop. She is on ASA 81mg daily. She has history of left breast cancer and is on medication but per daughter was told not chem and patient has not received radiation therapy. She is following-up with Oncologist. Denies history of atrial fibrillation. Workup completed the ED today includes CT of the head is reported as acute area of ischemic insult involving the right caudate nucleus and putamen. No evidence for hemorrhagic transformation. No midline shift. CT angiography of the head and neck was reported as no significant diameter reduction to account for the patient's symptoms. No significant abnormality. Per the ED team her NIH stroke scale was 3. The points was 2 for facial droop and 1 for aphasia No IV TPA per the ED team since the onset of symptoms is 4-1/2 hours and it seems that the risk of TPA outweigh the benefit. -- MRI of the brain reveals acute CVI right caudate head and nasal ganglia; EEG is negative - Patient has been placed on aspirin, Plavix and Lipitor - PT/OT evaluation is pending 12/26/2022 patient is seen and evaluated sitting up in bedside chair; no specific complaints are reported Neurology on board--patient remains on aspirin and Plavix 75 mg daily. She was also started on Lipitor 80 mg daily at bedtime and he lowered it to 40 mg daily at bedtime for secondary stroke prophylaxis MRI the brain w/ and w/o revealed acute ischemic stroke in the right caudate head and basal ganglia. I personally reviewed MRI and agree with the findings. 2-D echo revealed left ventricular ejection fraction 50-55%. Moderate AR, mild MR, left atrial size upper limits of normal. --- Neurology recommends MATTHEW, rule out embolic source. Also suggest 30 day event monitor after discharge. Cardiology is consulted Objective - Vital Signs Vital signs: Vital Signs Temp 97.8 F 12/26/22 09:05 Pulse 70 12/26/22 09:05 Resp 18 12/26/22 09:05 BP 134/61 12/26/22 09:05 Pulse Ox 95 12/26/22 09:05 FiO2 Intake & Output 12/25/22 12/26/22 12/26/22 18:59 06:59 18:59 Intake Total 240 240 Balance 240 240 Intake: Oral 240 240 Other: # Voids 1 1 - Exam Constitutional; patient is resting in bed; opens eyes to verbal stimulation; not in any acute distress EENT Eyes: Present: anicteric sclerae, EOMI, PERRLA, normal appearance Neck: Present: normal ROM. Absent: lymphadenopathy, rigidity, thyromegaly Respiratory: bilateral: CTA, negative: rales, rhonchi, wheezing Cardiovascular: regular: normal: S1, S2 General gastrointestinal: Present: normal bowel sounds, soft. Absent: distended, organomegaly, tenderness Genitourinary Comment(s): deferred Integumentary: Present: normal turgor. Absent: jaundiced, rash, ulcer Neurologic: Present: CNII-XII intact. Absent: focal deficits Musculoskeletal: Present: gait normal, strength equal bilatera - Labs CBC & Chem 7: 12/26/22 14:02 12/26/22 14:02 Labs: Abnormal Lab Results - Last 24 Hours (Table) 12/25/22 12/25/22 Range/Units 10:57 10:57 WBC 2.4 L (3.8-10.6) k/uL RBC 3.18 L (3.80-5.40) m/uL Hgb 11.3 L (11.4-16.0) gm/dL Hct 33.3 L (34.0-46.0) % MCV 104.6 H (80.0-100.0) fL MCH 35.6 H (25.0-35.0) pg Neutrophils # 1.2 L (1.3-7.7) k/uL Lymphocytes # 0.9 L (1.0-4.8) k/uL Chloride 110 H (98-107) mmol/L Carbon Dioxide 21 L (22-30) mmol/L Glucose 147 H (74-99) mg/dL Calcium 8.1 L (8.4-10.2) mg/dL Assessment and Plan Assessment: 1. 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 of the head shows right caudate nucleus and putamen acute ischemic stroke. No IV TPA because of outside the window. Patient has been evaluated by neurology -- ordered MRI the brain w/ and w/o, hemoglobin A1c, TSH 2-D echo, lipid panels order is pending Because of recurrent confusion, neurology ordered routine EEG to rule out any underlying seizure or discharges. Continue neuro checks Cardiac monitoring PT OT and BENCH BORING MACHINE OPERATOR are consulted 2. Hypothyroidism; levothyroxin 100 MCG daily 3. Anxiety Xanax 0.25 mg daily 4. History of breast cancer; continue with home dose of letrozole 2.5 mg daily DVT prophylaxis; SCDs/subcu heparin 5000 units subcu every 12 hours CODE STATUS; full code
[2022-12-27] MEDS: SODIUM CHLORIDE 0.9% 1,000 ML IV SCH (06:20)
[2022-12-27] MEDS: LEVOTHYROXINE 100 MCG TAB PO SCH (06:20)
[2022-12-27] MEDS ORDERED: fentaNYL (PF) 50 MCG/ML 2 ML AMP ONE (07:37)
[2022-12-27] MEDS ORDERED: BENZOCAINE SPRAY 1 CAN TOPICAL ONE (07:59)
[2022-12-27] MEDS ORDERED: fentaNYL (PF) 50 MCG/ML 2 ML AMP IVP ONE (08:00)
[2022-12-27] MEDS ORDERED: SODIUM CHLORIDE 0.9% 500 ML 500 ML IV ONE (08:00)
[2022-12-27] MEDS ORDERED: MIDAZOLAM 2 MG/2 ML VIAL IVP ONE (08:00)
--- NOTE | 2022-12-27 09:00 | P.PCN ---
Date of Procedure: 12/27/22 Operative Findings: TRANSESOPHAGEAL ECHOCARDIOGRAM ROUSTABOUT: SCOTT MARIA MD, RPVI INDICATION: Rule out Cardex source of embolization SEDATION: Conscious sedation COMPLICATION: None LEVEL OF SEDATION Moderate sedation length of 20 minutes PROCEDURE DESCRIPTION: After obtaining an informed consent, the patient was brought to transesophageal echocardiogram room. Pulse oximetry and heart monitors were attached to the patient. The patient throat was sprayed using lidocaine. The patient was turned into left lateral position. After that a bite guard was placed. After an appropriate conscious sedation was initiated, the transesophageal echocardiogram was advanced through a bite guard into the mid esophagus. A 2-D echocardiogram images, color Doppler images, continuous wave images, pulse-wave images, of various cardiac structure were performed. After that the transesophageal echocardiogram probe was advanced into the stomach and fixed to obtain transgastric view was. The probe was brought into the mid esophagus. Inter-atrial septum was interrogated using 2D images, color Doppler images, and then contrast study. After that transesophageal echocardiogram was withdrawn out and upon withdrawing the descending thoracic aorta all the way up to the arch was evaluated. FINDING: The LV dimension and systolic function appeared to be within normal limits. The aortic valve appeared to be trileaflet valve with no stenosis was moderate insufficiency the mitral valve appeared to be mildly thickened with moderate MR. The interatrial septum appears to be intact was no evidence of shunt identified. The left atrial appendage appeared to be intact as well. The tricuspid valve and pulmonic valve appeared to be within normal limits. No evidence of pericardial effusion identified. CONCLUSION: 1. No evidence of cardiac source of embolization 2. Normal left atrial appendage 3. Normal LV dimension and systolic function 4. Aortic sclerosis was moderate insufficiency and no stenosis identified 5. Thickened mitral valve leaflets was moderate mitral regurgitation 6. No evidence of pericardial effusion
[2022-12-27] MEDS: CLOPIDOGREL 75 MG TAB PO SCH (09:31)
[2022-12-27] MEDS: HEPARIN SODIUM,PORCINE 5,000 UNIT/ML 1 ML VIAL SQ SCH (09:31)
[2022-12-27] MEDS: LETROZOLE 2.5 MG TAB PO SCH (09:32)
[2022-12-27] MEDS: ASPIRIN 325 MG TAB PO SCH (09:32)
[2022-12-27 09:44] LABS: African American GFR (CKD) 86 (>60 ml/min/1.73 sqM); Blood Urea Nitrogen 18 mg/dL (7-17); Calcium 8.5 mg/dL (8.4-10.2); Carbon Dioxide 25 mmol/L (22-30); Glucose 103 mg/dL (74-99); Non-African American GFR(CKD) 75 (>60 ml/min/1.73 sqM)
[2022-12-27 09:56] LABS: Basophils # (A) 0.1 k/uL (0-0.2); Basophils % (A) 2 %; Eosinophils # (A) 0.1 k/uL (0-0.7); Eosinophils % (A) 3 %; HCT 35.1 % (34.0-46.0); HGB 11.9 gm/dL (11.4-16.0); Lymphocytes % (A) 40 %; MCH 35.6 pg (25.0-35.0); MCHC 34.1 g/dL (31.0-37.0); MCV 104.5 fL (80.0-100.0); Macrocytosis Moderate; Mean Platelet Volume 7.6; Monocytes # (A) 0.1 k/uL (0-1.0); Monocytes % (A) 4 %; Neutrophils # (A) 1.2 k/uL (1.3-7.7); Neutrophils % (A) 48 %; Platelet Count 187 k/uL (150-450); RBC 3.35 m/uL (3.80-5.40); WBC 2.5 k/uL (3.8-10.6)
[2022-12-27 10:16] LABS: Anion Gap 6 mmol/L; Chloride 109 mmol/L (98-107); Potassium 4.4 mmol/L (3.5-5.1); Sodium 140 mmol/L (137-145)
[2022-12-27 10:31] VITALS: RESP 16
[2022-12-27 13:13] VITALS: BP 104/51; PULSE 75; TEMP 97.2
--- NOTE | 2022-12-27 16:35 | P.DS ---
Providers Date of admission: 12/23/22 21:16 Attending physician: Radha Antoine Consults: 12/23/22 21:16 Consult Physician Routine Consulting Provider: Mateusz Lopez Consult Reason/Comments: cva Do you want consulting provider notified?: Yes 12/25/22 13:39 Consult Physician Routine Consulting Provider: Chato Kee Consult Reason/Comments: Acute CVA, appears embolic, rule out cardiac source. Recommend MATTHEW. Do you want consulting provider notified?: Yes Primary care physician: Kat Castillo Hospital Course: Final diagnosis Acute right basal ganglia ischemic stroke History of hypothyroidism History of anxiety History of breast cancer maintained on hormone therapy and recently completed a second round of chemotherapy Discharge disposition Patient is stable for discharge. Patient will be discharging to her daughter's house. 30 Day even monitor recommended on discharge. Recommending to see a neurologist within 1-2 weeks on discharge. Family has concern with some cognitive decline this is discussed and family will follow-up with the neurologist. Patient did undergo speech therapy cognitive testing and they are recommending for outpatient speech therapy 2-3 times per week and this will need to be prescribed by the primary outpatient physician. Patient was recommended by neurology for a combination of aspirin 81 mg daily and Plavix 75 mg daily after 3 weeks patient will stop aspirin. Patient is also discharged on a statin. Patient was having sore throat minimally since chemo and is given a 7 day course of nystatin. Patient additionally to follow-up with cardiology and home health care as well as PCP Dr. Kat Castillo. Hospital Course Connie dsouza 82-year-old female with medical history of anxiety, hypothyroidism, breast cancer currently undergoing chemotherapy and on hormone therapy. Patient presents from home with concern for left-sided facial droop. Patient had a brain CT and follow-up MRI which does confirm a right basal ganglia stroke. Patient was admitted to the hospital with consult placed to neurology. TSH is normal, hemoglobin A1c 6.3, lipid panel reveals a triglyceride level of 185, cholesterol 192, LDL 116, HDL 38.4. Echocardiogram shows an EF of 50-55% with mild MR and moderate aortic regurgitation, mild to moderate TR. EEG reveals no seizure activity. There has been no arrhythmia noted on EKG. Patient had a MATTHEW to rule out embolic source of stroke which MATTHEW shows normal LV function and normal left atrial appendage. Cardiology also follow-up with the patient. Patient will be discharged on a 30 day event monitor to rule out a cardiac arrhythmia as cause of stroke. Family does have some concern as above with some cognitive decline that is now more pronounced since the stroke. Patient will be evaluated by neurology outpatient and to continue with speech therapy on discharge. Patient is currently denying chest pain, no shortness of breath, left-sided facial droop has essentially resolved. Abdomen is soft and nontender patient denies any nausea vomiting or diarrhea. Her lungs are clear. S1 S2 auscultated. Family is at the bedside and is okay with discharge home today after patient receives the event monitor. Please see medication reconciliation for list of current medication. Thank you for allowing us to participate in the care of this patient. The impression and plan of care has been dictated by Gabi Saldana, Nurse Practitioner as directed. Dr. Joslyn MD I have performed a history and physical examination and medical decision making of this patient, discussed the same with the dictator, and agree with the dictators assessment and plan as written, documented as a scribe. Based on total visit time, I have performed more than 50% of this visit. Patient Condition at Discharge: Stable Plan - Discharge Summary Discharge Rx Participant: No New Discharge Prescriptions: New Atorvastatin [Lipitor] 40 mg PO HS #30 tab Clopidogrel [Plavix] 75 mg PO DAILY #30 tab Aspirin EC [Ecotrin Low Dose] 81 mg PO DAILY #21 tab Continue Levothyroxine Sodium [Synthroid] 100 mcg PO DAILY Ondansetron [Zofran] 4 mg PO TID PRN PRN Reason: Nausea ALPRAZolam [Xanax] 0.25 mg PO DAILY PRN PRN Reason: Anxiety Palbociclib [Ibrance] 125 mg PO DIRECTED Letrozole 2.5 mg PO DAILY Discharge Medication List Letrozole 2.5 mg PO DAILY 09/22/22 [History] Levothyroxine Sodium [Synthroid] 100 mcg PO DAILY 09/22/22 [History] Palbociclib [Ibrance] 125 mg PO DIRECTED 09/22/22 [History] ALPRAZolam [Xanax] 0.25 mg PO DAILY PRN 12/23/22 [History] Ondansetron [Zofran] 4 mg PO TID PRN 12/23/22 [History] Aspirin EC [Ecotrin Low Dose] 81 mg PO DAILY #21 tab 12/27/22 [Rx] Atorvastatin [Lipitor] 40 mg PO HS #30 tab 12/27/22 [Rx] Clopidogrel [Plavix] 75 mg PO DAILY #30 tab 12/27/22 [Rx] Follow up Appointment(s)/Referral(s): oJse Montes MD [REFERRING] - 1 Week Chato Kee MD [STAFF PHYSICIAN] - 1 Week Kat Castillo MD [Primary Care Provider] - 1-2 days Reji Peñaloza MD [Medical Doctor] - 1 Week Mateusz Colunga MD [STAFF PHYSICIAN] - 1 Week [facility] [NON-STAFF] - Zana Hernadez DO [STAFF PHYSICIAN] - 1 Week Ambulatory/Diagnostic Orders: Basic Metabolic Panel [LAB.AMB] Location: None Selected Complete Blood Count w/diff [LAB.AMB] Time Frame: 3 Days, Location: None Selected Patient Instructions/Handouts: Ischemic Stroke (DC) Activity/Diet/Wound Care/Special Instructions: Follow up with neurology on discharge in 1 to 2 weeks, can further discuss cognitive impairment and recommendations Dr. Colunga, Dr. Hernadez, Dr. Montes, Dr. Peñaloza numbers have been provided, can choose a neurologist or follow up outside of town Continue on plavix 75 mg daily indefinitely aspirin 81 mg daily for 3 weeks than discontinue Follow up with your PCP Dr Kat Castillo in 1 to 2 days Follow up with your oncologist on D/C Follow up with Dr. Kee with cardiology services in 1 to 2 weeks 30 day event monitor to be placed prior to discharge Speech therapy recommending outpatient follow up 2 to 3 times per week. This prescription needs to come from outpatient primary provider - Dr. Kat Castillo. Speech therapy outpatient [facility] be [facility] at [facility] Discharge Disposition: HOME WITH HOME HEALTH SERVICES
--- NOTE | 2022-12-28 11:14 | P.PN ---
Subjective Progress Note Date: 12/27/22 12/27/2022: Patient was seen for a follow-up. Patient is doing much better. Her speech is back to normal. She still has some memory issues. No new focal symptoms. 12/25/2022: Patient was seen for a follow-up. Patient was seen by Dr. Mateusz Lopez yesterday. Please refer to his note for details. Patient is a 82-year-old right-handed female with acute right basal ganglia stro ke. Patient's multiple family members were present today. They mention that patient is doing much better. She still has moments of confusion. Last night when she woke up, she thought she was at her daughter's house. Patient has mild left facial droop, otherwise speech is normal. Her balance is good. She was able to flush the toilet with a right foot indicating good balance. Patient denies any numbness tingling focal weakness. No visual disturbance. Patient has history of breast cancer, and has undergone chemotherapy with Zometa 2 times in the past, the last infusion was on 12/13/2022. The next dose is due in March. Since her last infusion, she was not feeling well. Not able to swallow. Objective - Vital Signs Vital signs: Vital Signs Temp 97.2 F L 12/27/22 13:12 Pulse 75 12/27/22 13:12 Resp 16 12/27/22 13:12 BP 104/51 12/27/22 13:12 Pulse Ox 94 L 12/27/22 10:29 FiO2 Intake & Output 12/26/22 12/27/22 12/27/22 18:59 06:59 18:59 Intake Total 2100 480 50 Balance 2100 480 50 Intake: IV 50 Oral 2100 480 Other: # Voids 2 2 - Exam Patient is an elderly female, very pleasant, in no acute distress. Patient is alert awake oriented to time place and person. Knows it is December 2022 and that she is in [facility] in [facility]. Speech and language functions are normal. Patient can name and repeat very well. No aphasia or dysarthria. Attention, concentration and fund of knowledge is adequate. Detail cognitive function testing deferred. On cranial nerve examination, pupils are equal, round and reacting to light, visual everett are full on confrontation, with no neglect on double simultaneous stimulation. Extraocular muscles are intact with no nystagmus. There is no fa cial asymmetry anymore. Her tongue protrudes to the midline. Palatal elevation and sensation normal, hearing is mild to moderately decreased and shoulder shrug normal, facial sensation normal. On muscle strength testing, there is no pronator drift and the strength is normal in arms and legs distally and proximally. Sensory to touch is equal with no neglect on double simultaneous stimulation. Cerebellar function showed no ataxia for [id number] testing. No dysdiadochokinesia. Tone and bulk of muscles normal. Gait deferred.. On general examination, there is no carotid bruit or murmur, S1-S2 audible. Chest is clear on consultation. Abdomen is soft nontender. No organomegaly, b owel sounds present. Peripheral pulses are present. No edema. - Labs CBC & Chem 7: 12/27/22 09:03 12/27/22 09:03 Labs: Abnormal Lab Results - Last 24 Hours (Table) 12/27/22 12/27/22 Range/Units 09:03 09:03 WBC 2.5 L (3.8-10.6) k/uL RBC 3.35 L (3.80-5.40) m/uL MCV 104.5 H (80.0-100.0) fL MCH 35.6 H (25.0-35.0) pg Neutrophils # 1.2 L (1.3-7.7) k/uL Chloride 109 H (98-107) mmol/L BUN 18 H (7-17) mg/dL Glucose 103 H (74-99) mg/dL Assessment and Plan Assessment: This is an 82-year-old woman who presents our facility on 12/23/2022 because of facial droop as well as some confusion per the ED team. NIH stroke scale was a 3 and 2 points for facial droop and [address] and MRI of the head shows right caudate nucleus and putamen acute ischemic stroke. No IV TPA because of outside the window. Acute right basal ganglia stroke (caudate/putamen) and has left lower facial droop. Intermittent confusion, likely due to acute CVA. Moderate aortic regurgitation. Rule out cardiac source. History of left breast cancer in 07/2022, currently undergoing chemotherapy. Hypothyroidism Hard of hearing Plan: Patient has improved further. Her current NIH stroke scale is 0. In the ED the patient was started on aspirin 325mg daily (at home she was on ASA 81mg daily). Dr. Mateusz Lopez also started Plavix 75 mg daily. She was also started on Lipitor 80 mg daily at bedtime and he lowered it to 40 mg daily at bedtime for secondary stroke prophylaxis Recommend patient continue DAPT with aspirin 81 mg, Plavix 75 mg for 21 days. Thereafter stop aspirin and continue Plavix indefinitely. MRI the brain w/ and w/o revealed acute ischemic stroke in the right caudate head and basal ganglia. I personally reviewed MRI and agree with the findings. I also reviewed MRI of the brain on the computer with the family. Hemoglobin A1c 6.3, TSH normal 2-D echo revealed left ventricular ejection fraction 50-55%. Moderate AR, mild MR, left atrial size upper limits of normal. EEG showed: 1. No evidence of cardiac source of embolization 2. Normal left atrial appendage 3. Normal LV dimension and systolic function 4. Aortic sclerosis was moderate insufficiency and no stenosis identified 5. Thickened mitral valve leaflets was moderate mitral regurgitation 6. No evidence of pericardial effusion Patient has been hooked up with 30 day event monitor after discharge. Lipid panel cholesterol 192, LDL 116, HDL 38, triglycerides 185. Continue Lipitor 40 mg. CTA of head and neck revealed no significant stenosis, occlusion. EEG was normal. No epileptiform activity seen. Patient to follow up with neurologist in 1-2 weeks. Neurologically clear for discharge.
== END 2022-12-27 16:52 | disposition home health service (06) | DRG 66 ==
LOC: EC 17:21 → 3SCARD 21:16
PROVIDERS: ADMIT Hospitalist; ATTEND Hospitalist
PROC: B24BZZ4 Ultrasonography of Heart with Aorta, Transesophageal (ICD-10-PCS; principal; 2022-12-27 14:20)
DX: I63.40 Cerebral infarction due to embolism of unspecified cerebral artery (principal); R29.703 NIHSS score 3; E03.9 Hypothyroidism, unspecified; I35.1 Nonrheumatic aortic (valve) insufficiency; R29.810 Facial weakness; R47.01 Aphasia; F41.9 Anxiety disorder, unspecified; C50.912 Malignant neoplasm of unspecified site of left female breast; Z79.82 Long term (current) use of aspirin; Z79.890 Hormone replacement therapy; Z82.49 Family history of ischemic heart disease and other diseases of the circulatory system; Z82.3 Family history of stroke; R47.1 Dysarthria and anarthria; Z28.311 Partially vaccinated for COVID-19; Z87.891 Personal history of nicotine dependence; Z97.4 Presence of external hearing-aid; H91.93 Unspecified hearing loss, bilateral; Z79.899 Other long term (current) drug therapy
CPT/HCPCS: 36415; 70450; 70496; 70498; 70553; 80048; 80053; 80061; 81003; 83036; 83605; 83735; 84100; 84443; 84484; 85025; 85610; 85730; 93005; 93270; 93306; 93312; 93320; 93325; 94760; 95819; 96360; 96361; 99291

== ENCOUNTER → 2023-07-15 | Outpatient (CLI) | payer MEDICARE ==
[2023-07-15 10:29] LABS: African American GFR (CKD) >90 (>60 ml/min/1.73 sqM); Blood Urea Nitrogen 17 mg/dL (7-17); Non-African American GFR(CKD) 80 (>60 ml/min/1.73 sqM)
--- NOTE | 2023-07-15 12:18 | CT ---
EXAMINATION: CT CHEST, ABDOMEN AND PELVIS WITH IV CONTRAST DATE OF EXAMINATION: 07/15/2023. COMPARISON: 08/24/2022.. INDICATION: Follow-up for breast cancer. PROCEDURE: Axial CT of the chest, abdomen and pelvis was performed following the intravenous adminis tration of 100 ml Isovue 300. Coronal and sagittal reformats were performed. CT dose lowering techni ques were used, to include: automated exposure control, adjustment for patient size, and/or use of it erative reconstruction. FINDINGS: CHEST: Mediastinum and Mary: There is no axillary, mediastinal or hilar lymphadenopathy. Pleural and Pericardial spaces: There are no pleural or pericardial effusions. Cardiovascular: There is mild vascular calcification throughout the thoracic aorta without evidence o f aneurysmal dilation or dissection. Mild patchy coronary artery calcifications are seen. Calcified l eft hilar lymph node is present. Pulmonary Artery: There are no central pulmonary arterial filling defects. Lung Parenchyma and Airways: The lungs are clear. ABDOMEN: Liver and Biliary system: Normal. Adrenal glands: Normal. Kidneys and ureters: Normal. Spleen: Normal. Pancreas: Normal. Gallbladder: Surgically absent. Lymph nodes, Peritoneum and mesentery: There is no mesenteric or retroperitoneal lymphadenopathy. Gastrointestinal tract: There are no dilated loops of bowel or free intraperitoneal air. . The panc reas is normal. There is mild to moderate descending colonic and sigmoid colonic diverticulosis witho ut evidence of diverticulitis. Aorta/IVC: There is significant vascular calcification throughout the abdominal aorta and moderate plaque without evidence of aneurysmal dilation or dissection. 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 This is unchanged. The re also is likely significant stenosis at the origin of the celiac artery. This appears patent otherw ise. IVC normal. Abdominal wall: Normal. PELVIS: Fluid: There is no free fluid in the pelvis. Lymph Nodes: There is no pelvic or inguinal lymphadenopathy.. Urinary bladder: Normal. BONES: There are increasing areas of sclerosis seen throughout the vertebral bodies compatible with metastatic disease.. ADDITIONAL SIGNIFICANT FINDINGS: None. IMPRESSION: 1. Increasing areas of sclerosis throughout the vertebral bodies is compatible with metastatic diseas e. It is difficult to determine whether or not this is treatment change versus worsening disease. 2. No definitive evidence of metastatic disease otherwise seen with a chest, abdomen or pelvis. 3. Additional findings as above.
--- NOTE | 2023-07-17 14:53 | NM ---
EXAMINATION TYPE: NM bone scan whole body DATE OF EXAM: 07/15/2023 COMPARISON: CT 07/15/2023 and prior bone scan 08/24/2022 CLINICAL INDICATION: Female, 82 years old with history of C50.112 BREAST CANCER; TECHNIQUE: Delayed whole-body scanning was performed following the injection of 24.3 mCi Tc 99m MDP. Images acquired 3.5 hours post injection. FINDINGS: There is faint residual irregular uptake along the posterior aspect of the ribs. Areas of uptake thro ughout the thoracic and lumbar spine have diminished in intensity. Small foci of activity in the scap mary and calvarium have become fewer in number and intensity as well. Osteophytic change at the base o f the thumbs and at the right hip. IMPRESSION: Decreasing intensity and number of diffuse osseous metastatic disease. Findings suggest t hat the sclerosis seen on CT relates to healing change rather than progression.
== END | disposition home or self-care (01) ==
LOC: RADNMMAIN 09:33
PROVIDERS: ATTEND Internal Medicine Hematology & Oncology
DX: C50.112 Malignant neoplasm of central portion of left female breast (principal); C79.51 Secondary malignant neoplasm of bone; K12.30 Oral mucositis (ulcerative), unspecified; D70.2 Other drug-induced agranulocytosis
CPT/HCPCS: 82565; 84520; 71260; 74177; 36415; 78306; A9503; Q9967

== ENCOUNTER → 2023-08-11 | Outpatient (CLI) | payer MEDICARE ==
[2023-08-11 15:10] LABS: % Iron Saturation 30.25 (12.00-45.00); Chol/HDL Ratio 3.12 Ratio; Iron 95 UG/DL (50-170); LDL Cholesterol,Calculated 68.7 mg/dL (0.0-131.0); Magnesium 2.3 mg/dL (1.5-2.4); Phosphorus 3.2 mg/dL (2.4-5.1); Total Iron Binding Capacity 314 UG/DL (228-460); VLDL Calculation 19.66 mg/dL (5.00-40.00)
[2023-08-12 10:31] LABS: Zinc, Serum 72 ug/dL (60-130)
[2023-08-15 08:18] LABS: Vit B1(Thiamine) 83 ug/L (38-122)
== END | disposition home or self-care (01) ==
LOC: LABWHC1 08:01
PROVIDERS: ATTEND Family Medicine
DX: Z00.00 Encounter for general adult medical examination without abnormal findings (principal); E11.9 Type 2 diabetes mellitus without complications; E55.9 Vitamin D deficiency, unspecified; E03.9 Hypothyroidism, unspecified
CPT/HCPCS: 36415; 80061; 82306; 82607; 83036; 83540; 83550; 83735; 84100; 84207; 84425; 84439; 84443; 84630

== ENCOUNTER → 2023-12-21 | Outpatient (CLI) | payer MEDICARE ==
--- NOTE | 2024-01-13 21:44 | CT ---
Site ID synapse default Patient Wendy Centeno ID [id number] Age/Gender: 83Y, F Order # N/A Procedure Thorax^chest_abdomen_pelvis_Customized (Adult) Date 12/21/2023 11:17:38 AM EXAMINATION TYPE: CT ChestAbdPelvis w con CT DLP: 1058 mGycm, Automated exposure control for dose reduction was used. DATE OF EXAM: 12/28/2023 4:34 PM COMPARISON: None, please note PACS Production downtime occurred during the radiologist interpretation of these images with limited priors/reports. CLINICAL INDICATION: Female, 83 year old with history of breast cancer. Technique: Multiple axial images of the chest, abdomen, and pelvis were obtained following the intrav enous administration of 100 mL Isovue-300. Oral contrast was administered. Two-dimensional coronal an d sagittal reconstructions were obtained. Findings: CHEST: LUNGS/ PLEURA: No suspicious pulmonary nodules or masses. No pleural effusion, pneumothorax, or focal consolidation. AIRWAY: Patent and unremarkable.. HEART: Size within normal limits. No pericardial effusion. MEDIASTINUM: Mildly enlarged precarinal lymph node measuring up to 1.2 cm (series 2, image 23). VASCULATURE: No aortic aneurysm. MUSCULOSKELETAL: No acute osseous abnormalities. Multifocal sclerotic foci identified most prominentl y throughout the spine. Additional focus identified within the sternum and throughout the bilateral p elvic bones. These are most consistent with osseous metastasis. Largest lesions involve the left lubna sacrum and T10 vertebral body. SOFT TISSUES/LYMPH NODES: No axillary adenopathy measuring greater than 1 cm in short axis. Consider further evaluation with axial ultrasound at this concern for axillary metastasis. LOWER NECK: Thyroid is atrophic or surgically absent. ABDOMEN: ABDOMEN LIVER: Unremarkable GALLBLADDER AND BILE DUCTS: The gallbladder is surgically absent. Expected extrahepatic biliary duct dilatation postcholecystectomy. PANCREAS: Unremarkable. SPLEEN: Unremarkable. ADRENAL GLANDS: Unremarkable. KIDNEYS AND URETERS: No evidence of hydronephrosis or renal calculus. The kidneys enhance symmetrical ly symmetrically. Left inferior pole renal cyst measuring about 1.1 cm. Additional bilateral subcenti meter hypodense foci which are too small to characterize but likely represent cysts. Contrast is demo nstrated within both collecting systems on the delayed phase. Prominent bilateral extra renal pelvise s is right greater than left. Renal sinus cysts identified bilaterally. PELVIS BLADDER: Unremarkable REPRODUCTIVE: Unremarkable. ABDOMEN & PELVIS STOMACH AND BOWEL: Small hiatal hernia, duodenum is unremarkable. No focal bowel wall thickening or s urrounding inflammatory changes. Distal colonic diverticulosis without evidence for acute diverticuli tis. Enteric contrast reaches the transverse colon. The appendix is within normal limits. No evidence of bowel obstruction. PERITONEUM: No evidence of pneumoperitoneum or free fluid. VASCULATURE: Mild atherosclerotic calcifications are present throughout the abdominal aorta and its b ranches. No abdominal aortic aneurysm. MUSCULOSKELETAL: No acute osseous abnormalities. Multifocal sclerotic foci identified most prominentl y throughout the spine. Additional focus identified within the sternum and throughout the bilateral p elvic bones. These are most consistent with osseous metastasis. Largest lesions involve the left lubna sacrum and T10 vertebral body. LYMPH NODES: No evidence for lymphadenopathy. SOFT TISSUE/ABDOMINAL WALL: Unremarkable IMPRESSION: 1. Multiple sclerotic lesions throughout the osseous structures primarily involving the spine, pelvi c bones, and sternum. Most consistent with osseous metastasis. No prior imaging is available for honey aparicio. 2. Nonspecific mildly enlarged precarinal lymph node. Metastasis is not excluded. 3. Colonic diverticulosis.
--- NOTE | 2024-01-25 11:48 | NM ---
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 History of osteo arthritis of the spine 19.1mCi Tc99m MDP at 1000 PM/NDC COMPARISON: THIS EXAM WAS READ DURING PACS DOWNTIME, NO PRIORS AVAILABLE. TECHNIQUE: Intravenous administration 19.1 mCi Tc 99m MDP followed by multiple scintigraphic images o f the appendicular and axial skeleton. Small kpact-sq-ampg thorax and abdominal imaging was also perf ormed. Images acquired 3 hours post injection. FINDINGS: Scattered uptake throughout the spine worse at L3 and L2 on the anterior projection and possibly T10- T11 and posterior projection. There is increased uptake within the bilateral shoulder, sternoclavicular, and sacroiliac joints con sistent with degenerative changes. No other photopenic areas or areas of increased activity are ident ified. Physiologic radiotracer activity is demonstrated in the kidneys and bladder. IMPRESSION: Uptake within the spine possibly due to metastatic disease. No priors available to compare. Correlate with CT imaging.
== END | disposition home or self-care (01) ==
LOC: RADCTMAIN 09:20
PROVIDERS: ATTEND Internal Medicine Hematology & Oncology
DX: C50.112 Malignant neoplasm of central portion of left female breast (principal); C79.51 Secondary malignant neoplasm of bone; K57.30 Diverticulosis of large intestine without perforation or abscess without bleeding; R59.0 Localized enlarged lymph nodes; Z85.3 Personal history of malignant neoplasm of breast
CPT/HCPCS: 71260; 74177; 36415; 78306; A9503; Q9967

== ENCOUNTER 2024-02-03 10:51 | Emergency (ER) | payer MEDICARE ==
[2024-02-03] MEDS: dexAMETHasone ORAL SOLUTION 4 MG/ML VIAL PO ONE (12:32)
[2024-02-03 12:37] VITALS: BP 171/63; PULSE 65; RESP 16; TEMP 98.3
[2024-02-03 12:42] LABS: Appearance,Urine Clear (Clear); Bilirubin,Urine Negative (Negative); Blood,Urine Negative (Negative); Color,Urine Colorless; Glucose,Urine (UA) Negative (Negative); Ketones,Urine Negative (Negative); Leukocyte Esterase,Urine Negative (Negative); Nitrite,Urine Negative (Negative); Protein,Urine Negative (Negative); Specific Gravity,Urine 1.005 (1.001-1.035); Urobilinogen,Urine <2.0 mg/dL (<2.0)
--- NOTE | 2024-02-03 12:58 | ED ---
General Adult HPI - General Chief complaint: Skin/Abscess/Foreign Body Stated complaint: Mouth sores Source: patient Mode of arrival: ambulatory Limitations: no limitations - History of Present Illness Initial comments: This is an 83-year-old female presenting with daughter for right tongue pain x 5 days. Patient endorses worsening pain especially while eating, causing loss and appetite. Patient also endorses small, solitary scabs noted 1 each, left hand right arm and left leg. Endorses right ear pain. Patient denies fever, chills, fatigue, body aches, chest pain, dyspnea, nausea vomiting diarrhea, constipation, headache.. Onset/Timin -: days(s) - Related Data Home Medications Medication Instructions Recorded Confirmed Letrozole 2.5 mg PO DAILY 09/22/22 12/23/22 Levothyroxine Sodium [Synthroid] 100 mcg PO DAILY 09/22/22 12/23/22 Palbociclib [Ibrance] 125 mg PO DIRECTED 09/22/22 12/23/22 ALPRAZolam [Xanax] 0.25 mg PO DAILY PRN 12/23/22 12/23/22 Ondansetron [Zofran] 4 mg PO TID PRN 12/23/22 12/23/22 Previous Rx's Medication Instructions Recorded Aspirin EC [Ecotrin Low Dose] 81 mg PO DAILY #21 tab 12/27/22 Atorvastatin [Lipitor] 40 mg PO HS #30 tab 12/27/22 Clopidogrel [Plavix] 75 mg PO DAILY #30 tab 12/27/22 Nystatin 100,000 Unit/ml Susp 5 ml PO QID #150 ml 12/27/22 [Mycostatin Oral Susp] Amoxicillin 875 mg PO Q12HR 7 Days #14 tablet 02/03/24 dexAMETHasone .ORAL SOLUTION 10 mg PO Q8HR #150 ml 02/03/24 [Decadron Oral Solution] lidocaine HCL [Lidocaine HCl 5 ml MM Q4-6H #100 ml 02/03/24 Viscous] Allergies Allergy/AdvReac Type Severity Reaction Status Date / Time No Known Allergies Allergy Verified 02/03/24 10:56 Review of Systems ROS Statement: Those systems with pertinent positive or pertinent negative responses have been documented in the HPI. ROS Other: All systems not noted in ROS Statement are negative. Past Medical History Past Medical History: Cancer, Thyroid Disorder Additional Past Medical History / Comment(s): hard of hearing, bilat hearing aid, lt breast History of Any Multi-Drug Resistant Organisms: None Reported Past Surgical History: Cholecystectomy Past Anesthesia/Blood Transfusion Reactions: No Reported Reaction Past Psychological History: No Psychological Hx Reported Smoking Status: Former smoker Past Alcohol Use History: None Reported, Rare Past Drug Use History: None Reported - Past Family History Father Family Medical History: Myocardial Infarction ([place]) Mother Family Medical History: CVA/TIA General Exam Limitations: no limitations General appearance: alert, in no apparent distress Head exam: Present: atraumatic, normocephalic, normal inspection Eye exam: Present: normal appearance, PERRL, EOMI. Absent: scleral icterus, conjunctival injection, periorbital swelling ENT exam: Present: normal exam, mucous membranes moist, other (Positive right TM opacity with bulging. Positive right lateral tongue erythema along the length of tongue with 2 aphthous ulcers noted on right lateral side and underside of tongue. Solitary right lower molar noted. Suspected intrusive point of molar on tongue causing current signs and symptoms) Neck exam: Present: normal inspection. Absent: tenderness, meningismus, lymphadenopathy Respiratory exam: Present: normal lung sounds bilaterally. Absent: respiratory distress, wheezes, rales, rhonchi, stridor Cardiovascular Exam: Present: regular rate, normal rhythm, normal heart sounds. Absent: systolic murmur, diastolic murmur, rubs, gallop, clicks GI/Abdominal exam: Present: soft, normal bowel sounds. Absent: distended, tenderness, guarding, rebound, rigid Extremities exam: Present: normal inspection, full ROM, normal capillary refill. Absent: tenderness, pedal edema, joint swelling, calf tenderness Back exam: Present: normal inspection Neurological exam: Present: alert, oriented X3, CN II-XII intact Psychiatric exam: Present: normal affect, normal mood Skin exam: Present: warm, dry, intact, normal color. Absent: rash Course Vital Signs 02/03/24 02/03/24 10:54 12:35 Temperature 97.8 F 98.3 F Pulse Rate 76 65 Respiratory 18 16 Rate Blood Pressure 181/70 171/63 O2 Sat by Pulse 98 98 Oximetry Medical Decision Making - Medical Decision Making Was pt. sent in by a medical professional or institution (, PA, TRIM LINE WORKER, urgent care, hospital, or snf...) When possible be specific @ -[No] Did you speak to anyone other than the patient for history (EMS, parent, family, police, friend...)? What history was obtained from this source @ -[No] Did you review nursing and triage notes (agree or disagree)? Why? @ -[I reviewed and agree with nursing and triage notes] Were old charts reviewed (outside hosp., previous admission, EMS record, old EKG, old radiological studies, urgent care reports/EKG's, snf records)? Report findings @ -[No old charts were reviewed] Differential Diagnosis (chest pain, altered mental status, abdominal pain women, abdominal pain men, vaginal bleeding, weakness, fever, dyspnea, syncope, headache, dizziness, GI bleed, back pain, seizure, CVA, palpatations, mental health, musculoskeletal)? @ -Aphthous ulcer, laceration of tongue, periapical abscess, dental carry, Vincents angina, strep tonsillitis, pharyngitis, TMJ, acute otitis media EKG interpreted by me (3pts min.). @ -[As above] X-rays interpreted by me (1pt min.). @ -[None done] CT interpreted by me (1pt min.). @ -[None done] U/S interpreted by me (1pt. min.). @ -[None done] What testing was considered but not performed or refused? (CT, X-rays, U/S, labs)? Why? @ -[None] What meds were considered but not given or refused? Why? @ -[None] Did you discuss the management of the patient with other professionals (professionals i.e. , PA, TRIM LINE WORKER, lab, RT, psych nurse, social service technician, clinical educator, teacher, deputy probation officer, wrapper caser)? Give summary @ -[No] Was smoking cessation discussed for >3mins.? @ -[No] Was critical care preformed (if so, how long)? @ -[No] Were there social determinants of health that impacted care today? How? (Homelessness, low income, unemployed, alcoholism, drug addiction, transportation, low edu. Level, literacy, decrease access to med. care, [place] [facility], re hab)? @ -[No] Was there de-escalation of care discussed even if they declined (Discuss DNR or withdrawal of care, Hospice)? DNR status @ -[No] What co-morbidities impacted this encounter? (DM, HTN, Smoking, COPD, CAD, Cancer, CVA, ARF, Chemo, Hep., AIDS, mental health diagnosis, sleep apnea, morbid obesity)? @ -[None] Was patient admitted / discharged? Hospital course, mention meds given and route , prescriptions, significant lab abnormalities, going to OR and other pertinent info. @ -Discharge. Based on HPI and physical exam patient was treated for tongue abrasion with aphthous ulcers. Treated with dexamethasone oral elixir and viscous lidocaine with patient noting some relief. Additional mouthwashes of both sent to pharmacy. Amoxicillin also sent for AOM. Undiagnosed new problem with uncertain prognosis? @ -[No] Drug Therapy requiring intensive monitoring for toxicity (Heparin, Nitro, Insulin, Cardizem)? @ -[No] Were any procedures done? @ -[No] Diagnosis/symptom? @ -[default] Acute, or Chronic, or Acute on Chronic? @ -Acute Uncomplicated (without systemic symptoms) or Complicated (systemic symptoms)? @ -Uncomplicated Side effects of treatment? @ -[No] Exacerbation, Progression, or Severe Exacerbation? @ -[No] Poses a threat to life or bodily function? How? (Chest pain, [place], [place], pneumonia, PE, COPD, DKA, ARF, appy, cholecystitis, CVA, Diverticulitis, Homicidal, Suicidal, threat to staff... and all critical care pts) @ -[No] - Lab Data Lab Results 02/03/24 Range/Units 12:30 Urine Color Colorless Urine Appearance Clear (Clear) Urine pH 6.0 (5.0-8.0) Ur Specific [place] 1.005 (1.001-1.035) Urine Protein Negative (Negative) Urine Glucose (UA) Negative (Negative) Urine Ketones Negative (Negative) Urine Blood Negative (Negative) Urine Nitrite Negative (Negative) Urine Bilirubin Negative (Negative) Urine Urobilinogen <2.0 (<2.0) mg/dL Ur Leukocyte Esterase Negative (Negative) Disposition Clinical Impression: Aphthous ulcer, Otitis media, Insect bite Disposition: HOME SELF-CARE Additional Instructions: Please return to the Emergency Department if symptoms worsen or any other concerns. Prescriptions: Amoxicillin 875 mg PO Q12HR 7 Days #14 tablet dexAMETHasone .ORAL SOLUTION [Decadron Oral Solution] 10 mg PO Q8HR #150 ml lidocaine HCL [Lidocaine HCl Viscous] 5 ml MM Q4-6H #100 ml Is patient prescribed a controlled substance at d/c from ED?: No Referrals: Kat Castillo MD [Primary Care Provider] - 1-2 days Time of Disposition: 12:57
[2024-02-03] MEDS: LIDOCAINE VISCOUS 2% 15 ML CUP MUCOUS MEM ONE (13:00)
[2024-02-03] MEDS ORDERED: MAG HYDROX/AL HYDROX/SIMETH 30 ML, LIDOCAINE VISCOUS 2% 30 ML, diphenhydrAMINE ELIXIR 7... PO SCH (16:00)
== END 2024-02-03 13:13 | disposition home or self-care (01) ==
LOC: EC 10:51
DX: S00.502A Unspecified superficial injury of oral cavity, initial encounter
CPT/HCPCS: 81003; 99283

== ENCOUNTER → 2024-08-15 | Outpatient (CLI) | payer MEDICARE ==
[2024-08-15 13:47] LABS: African American GFR (CKD) 82 (>60 ml/min/1.73 sqM); Blood Urea Nitrogen 20 mg/dL (7-17); Non-African American GFR(CKD) 71 (>60 ml/min/1.73 sqM)
--- NOTE | 2024-08-15 16:37 | CT ---
EXAMINATION TYPE: CT ChestAbdPelvis w con DATE OF EXAM: 08/15/2024 COMPARISON: 12/21/2023 CLINICAL INDICATION: Female, 83 years old with history of C50.[address] DLP: 679.2 mGycm Automated exposure control for dose reduction was used. CONTRAST: CT scan of the chest, abdomen and pelvis is performed with Oral Contrast and with IV Contrast, patien t injected with 80 ml mL of Isovue 300. FINDINGS: CT chest: There is no suspicious lung mass or nodule. There is no abnormal airspace/consolidative density or abnormal interstitial density. There is no pleural effusion, pleural thickening or pneumothorax. The great vessels and chest are normal there is no mediastinal, hilar or axillary adenopathy. Multiple stable innumerable sclerotic lesions throughout the thoracic spine, sternum and multiple rib s consistent with bone metastasis but no pathologic fracture. CT abdomen and pelvis: There is surgical absence of the gallbladder. There is no biliary ductal dilatation. There is no focal mass or organomegaly involving the liver, pancreas, spleen or adrenal glands.. There is no solid renal mass or hydronephrosis. There are stable parapelvic cysts of both kidneys. Th ere is no retroperitoneal adenopathy or hemorrhage in the caliber of the abdominal aorta is normal. The bowel loops are normal in caliber and there is no dilatation or obstruction. No inflammatory maddox ges identified in the bowel wall and mesentery. There is no free intracranial air or fluid. There is no pelvic mass or adenopathy. There is no free fluid within the pelvis. There are multiple stable innumerable sclerotic lesions in the lumbar spine, pelvis and hips but no p athologic fractures. IMPRESSION: Stable diffuse bone metastasis throughout the visualized osseous structures with no pathologic fractu res. No new abnormality seen. [facility], , 08/15/2024 4:35 PM
== END | disposition home or self-care (01) ==
LOC: RADCTMAIN 12:46
PROVIDERS: ATTEND Internal Medicine Hematology & Oncology
DX: C50.112 Malignant neoplasm of central portion of left female breast (principal); C79.51 Secondary malignant neoplasm of bone; I67.89 Other cerebrovascular disease; M85.9 Disorder of bone density and structure, unspecified
CPT/HCPCS: 82565; 84520; 71260; 74177; 36415; Q9967

== ENCOUNTER → 2024-09-07 | Outpatient (CLI) | payer MEDICARE ==
--- NOTE | 2024-09-08 15:16 | BD ---
EXAMINATION TYPE: Axial Bone Density DATE OF EXAM: 09/07/2024 CLINICAL HISTORY: 83 years old Female. ICD-10 CODE: M81.0 OSTEOPENIA , Additional History: Height: 60.5 Weight: 120.8 FRAX RISK QUESTIONS: Alcohol (3 or more units per day): NO Family History (Parent hip fracture): no Glucocorticoids (More than 3mos): no (Ex: prednisone, prednisolone, methylprednisolone, dexamethasone, and hydrocortisone). History of Fracture in Adulthood: no Secondary Osteoporosis: 1. Type 1 Diabetes: no 2. Hyperthyroidism: no 3. Menopause before 45: no 4. Malnutrition: no 5. Chronic liver disease: no Rheumatoid Arthritis: no Current Tobacco Use: no RISK FACTORS HISTORY OF: Surgery to Spine/Hip(right/left)/Wrist (right/left): no MEDICATIONS: Thyroid Medications: synthroid How Lon + years EXAM MEASUREMENTS: Bone mineral densitometry was performed using the [employer] System. Bone mineral density as measured about the Lumbar spine is: ----- L1-L4(G/cm2): 1.349 T Score Values are as follows: ----- L1: 1.8 ----- L2: 0.0 ----- L3: 3.4 ----- L4: 0.4 ----- L1-L4: 1.4 Z Score Values are as follows: ----- L1: 4.1 ----- L2: 2.2 ----- L3: 5.6 ----- L4: 2.7 ----- L1-L4: 3.6 Bone mineral density has: increased 33.7 % since study of: 06.30.2022 Bone mineral density about the R hip (g/cm2): 0.849 Bone mineral density about the L hip (g/cm2): 0.829 T Score values are as follows: -----R Neck: -0.5 -----L Neck: -1.4 -----R Total: -1.3 -----L Total: -1.4 Z Score values are as follows: -----R Neck: 2.0 -----L Neck: 1.1 -----R Total: 1.2 -----L Total: 1.0 Bone mineral density has: increased 2.2 % since study of: 2.22.2022 FRAX%s: The graph provided illustrates a 15.1% chance for a major osteoporotic fx and a 2.2% chance f or the hips probability for fx in 10 years time. IMPRESSION: Osteopenia (T Score between -2.5 and -1). There is slightly increased risk of fracture and the patient may be considered for treatment. Re-Screen 2-5 years. NOTE: T-SCORE=SD OF THE YOUNG ADULT MEAN. [facility], Workstation: [facility]ITALBig red truck driving schoolKATIE, 09/08/2024 3:14 PM
== END | disposition home or self-care (01) ==
LOC: RADBDWWP 15:13
PROVIDERS: ATTEND Internal Medicine Hematology & Oncology
DX: M81.0 Age-related osteoporosis without current pathological fracture (principal); I67.89 Other cerebrovascular disease; K12.30 Oral mucositis (ulcerative), unspecified; C79.51 Secondary malignant neoplasm of bone; C50.112 Malignant neoplasm of central portion of left female breast; M85.89 Other specified disorders of bone density and structure, multiple sites
CPT/HCPCS: 77080